=== PATIENT | male | born 1960 | race Caucasian/White ===

== ENCOUNTER → 2018-05-17 10:45 | Outpatient (CLI) | payer MEDICAID, SELFPAY ==
[2018-05-17 11:41] LABS: Basophils % 0.4 % (0.1-2.0); Eosinophils % 0.4 % (0.1-12.0); Hematocrit 42.6 % (42.0-52.0); Hemoglobin 14.3 g/dL (14.1-18.0); Lymphocytes # 1.6 K/mm3 (0.7-4.5); Lymphocytes % 14.9 K/mm3 (10-50); Mean Corpuscular HGB Conc 33.5 g/dL (31.8-35.4); Mean Corpuscular Hemoglobin 29.2 pg (27.0-31.2); Mean Corpuscular Volume 87.3 fl (80-94); Monocytes # 0.6 K/mm3 (0.1-1.0); Neutrophils # 8.7 K/mm3 (1.8-7.8); Neutrophils % 79.3 % (37.0-80.0); Platelet Count 343 K/mm3 (142-424); Red Blood Count 4.88 M/mm3 (4.60-6.20); Red Cell Distribution Width 12.3 % (11.5-17.5); White Blood Count 10.9 K/mm3 (4.8-10.8)
[2018-05-17 12:19] LABS: Hemoglobin A1C 10.7 % (0.0-7.0)
[2018-05-17 12:51] LABS: Alanine Aminotransferase 37 U/L (12-78); Albumin Level 4.2 gm/dL (3.4-5.0); Albumin/Globulin Ratio 1.3 (1.1-1.8); Alkaline Phosphatase 103 U/L (46-116); Anion Gap 13.5 mEq/L (5-15); Aspartate Amino Transferase 11 U/L (15-37); Bilirubin,Total 0.7 mg/dL (0.2-1.0); Blood Urea Nitrogen 30 mg/dL (7-18); Calcium 9.5 mg/dL (8.5-10.1); Carbon Dioxide 29 mmol/L (21.0-32.0); Chloride 95 mmol/L (98-107); Chol/HDL Ratio 8.5 (1-3.5); Cholesterol 305 mg/dL (140-200); Creatinine,Serum 1.55 mg/dL (0.70-1.30); Estimated Glomerular Filt Rate 46 ml/min (>60); GFR (African American) 56 ML/MIN (>60); Globulin 3.2 gm/dl (1.3-3.2); Glucose 391 mg/dL (74-106); HDL Cholesterol 36 mg/dL (27-67); Potassium 4.5 mmoL/L (3.5-5.1); Prostate Specific Ag Screen 1.6 ng/mL (0.0-4.0); Sodium 133 mmol/L (136-145); Thyroid Stimulating Hormone 0.83 uIU/ml (0.358-3.740); Total Protein,Serum 7.4 gm/dL (6.4-8.2)
[2018-05-17 13:10] LABS: Triglycerides 1031 mg/dL (30-200)
[2018-05-18 07:16] LABS: LH 9.3 mIU/mL (1.7-8.6)
[2018-05-18 08:38] LABS: Testosterone,Total 235 ng/dL (264-916); Vitamin D 25 Hydroxy 18.5 ng/mL (30.0-100.0)
[2018-05-18 08:39] LABS: Vitamin B12 437 pg/mL (232-1245)
== END ==
PROVIDERS: PCP Internal Medicine Adolescent Medicine; Visit Provider Nurse Practitioner Family
DX: Z00.00 Encounter for general adult medical examination without abnormal findings (principal); E78.2 Mixed hyperlipidemia; I10 Essential (primary) hypertension; N52.9 Male erectile dysfunction, unspecified; E11.9 Type 2 diabetes mellitus without complications; R53.83 Other fatigue
CPT/HCPCS: 36415; 80053; 80061; 82607; 82652; 83002; 83036; 84146; 84403; 84443; 85025; G0103

== ENCOUNTER → 2018-05-31 10:15 | Outpatient (CLI) | payer MEDICAID, SELFPAY ==
[2018-05-31 11:28] LABS: Alanine Aminotransferase 46 U/L (12-78); Albumin/Globulin Ratio 1.4 (1.1-1.8); Alkaline Phosphatase 87 U/L (46-116); Anion Gap 12.8 mEq/L (5-15); Aspartate Amino Transferase 23 U/L (15-37); Bilirubin,Total 0.7 mg/dL (0.2-1.0); Blood Urea Nitrogen 29 mg/dL (7-18); Calcium 9.1 mg/dL (8.5-10.1); Carbon Dioxide 28 mmol/L (21.0-32.0); Chloride 103 mmol/L (98-107); Creatinine,Serum 1.65 mg/dL (0.70-1.30); Estimated Glomerular Filt Rate 43 ml/min (>60); GFR (African American) 52 ML/MIN (>60); Globulin 2.8 gm/dl (1.3-3.2); Glucose 244 mg/dL (74-106); Potassium 4.8 mmoL/L (3.5-5.1); Sodium 139 mmol/L (136-145); Total Protein,Serum 6.8 gm/dL (6.4-8.2)
== END ==
PROVIDERS: PCP Nurse Practitioner Family; Visit Provider Nurse Practitioner Family
DX: R79.89 Other specified abnormal findings of blood chemistry (principal); E11.9 Type 2 diabetes mellitus without complications; I10 Essential (primary) hypertension
CPT/HCPCS: 36415; 80053

== ENCOUNTER → 2018-11-17 11:24 | Outpatient (CLI) | payer MEDICAID, SELFPAY ==
[2018-11-17 14:35] LABS: Alanine Aminotransferase 34 U/L (12-78); Albumin Level 4.3 gm/dL (3.4-5.0); Albumin/Globulin Ratio 1.5 (1.1-1.8); Alkaline Phosphatase 91 U/L (46-116); Anion Gap 12.7 mEq/L (5-15); Aspartate Amino Transferase 14 U/L (15-37); Bilirubin,Total 0.7 mg/dL (0.2-1.0); Blood Urea Nitrogen 21 mg/dL (7-18); Calcium 9.5 mg/dL (8.5-10.1); Carbon Dioxide 30 mmol/L (21.0-32.0); Chloride 105 mmol/L (98-107); Chol/HDL Ratio 5.9 (1-3.5); Cholesterol 178 mg/dL (140-200); Creatinine,Serum 1.54 mg/dL (0.70-1.30); Estimated Glomerular Filt Rate 46 ml/min (>60); GFR (African American) 56 ML/MIN (>60); Globulin 2.9 gm/dl (1.3-3.2); Glucose 131 mg/dL (74-106); HDL Cholesterol 30 mg/dL (27-67); LDL Cholesterol 77 mg/dL (0-130); Potassium 4.7 mmoL/L (3.5-5.1); Sodium 143 mmol/L (136-145); Total Protein,Serum 7.2 gm/dL (6.4-8.2); Triglycerides 354 mg/dL (30-200); VLDL Cholesterol 71 mg/dL (0-40)
== END ==
PROVIDERS: Visit Provider Internal Medicine Adolescent Medicine
DX: E78.2 Mixed hyperlipidemia (principal); E11.9 Type 2 diabetes mellitus without complications
CPT/HCPCS: 36415; 80053; 80061; 83036

== ENCOUNTER → 2018-12-15 08:19 | Outpatient (CLI) | payer MEDICAID, SELFPAY ==
[2018-12-15 10:49] LABS: Anion Gap 14.2 mEq/L (5-15); Blood Urea Nitrogen 34 mg/dL (7-18); Calcium 8.7 mg/dL (8.5-10.1); Carbon Dioxide 27 mmol/L (21.0-32.0); Chloride 104 mmol/L (98-107); Creatinine,Serum 1.69 mg/dL (0.70-1.30); Estimated Glomerular Filt Rate 42 ml/min (>60); GFR (African American) 51 ML/MIN (>60); Glucose 146 mg/dL (74-106); Potassium 4.2 mmoL/L (3.5-5.1); Sodium 141 mmol/L (136-145)
== END ==
PROVIDERS: Visit Provider Nurse Practitioner Family
DX: R79.89 Other specified abnormal findings of blood chemistry (principal)
CPT/HCPCS: 36415; 80048

== ENCOUNTER → 2018-12-21 14:41 | Outpatient (CLI) | payer MEDICAID, SELFPAY ==
--- NOTE | 2018-12-21 14:45 | US_ITS ---
US Kidney CLINICAL INDICATION: ITS.REASON: RENAL INSUFFICIENCY ORDERING PHYSICIAN: Manuel Lawler MD PATIENT AGE: 58 years Comparison: None FINDINGS: The right kidney is 12 x 6 x 6 cm. No hydronephrosis. No perinephric fluid collection. The left kidney is 13 x 6 x 7 cm. No hydronephrosis apparent. There is a 3 cm cyst along the lower pole of the left kidney. There is mild bilateral renal cortical thinning. IMPRESSION: 1. No hydronephrosis. 2. 3 cm cyst along the lower pole of the left kidney
== END ==
PROVIDERS: PCP Internal Medicine Adolescent Medicine; Visit Provider Internal Medicine Adolescent Medicine
DX: N28.9 Disorder of kidney and ureter, unspecified (principal)
CPT/HCPCS: 76770

== ENCOUNTER → 2018-12-24 08:35 | Outpatient (CLI) | payer MEDICAID, SELFPAY ==
[2018-12-24 09:58] LABS: Creatinine,Urine Random 123 mg/dL (20-320); Patient Height,Urine 72 inches; Patient Weight,Urine 235 lbs
[2018-12-24 10:01] LABS: Collection Time,Urine 19 hours; Creatinine 24 Hour,Urine 2276 mg/24hr (630-2500); Creatinine Clearance Urine 101.2 mL/min (85-125); Total Volume,Urine 1850 mL (800-1800)
== END ==
PROVIDERS: Visit Provider Internal Medicine Adolescent Medicine
DX: N28.9 Disorder of kidney and ureter, unspecified (principal)
CPT/HCPCS: 82570; 82575

== ENCOUNTER → 2019-01-26 09:35 | Outpatient (CLI) | payer MEDICAID, SELFPAY ==
[2019-01-26 09:53] LABS: Basophils # 0.1 K/mm3 (0-0.2); Basophils % 0.7 % (0.1-2.0); Eosinophils # 0.4 K/mm3 (0.0-0.4); Eosinophils % 5.3 % (0.1-12.0); Hematocrit 39.7 % (42.0-52.0); Lymphocytes # 1.2 K/mm3 (0.7-4.5); Lymphocytes % 15.6 % (10-50); Mean Corpuscular HGB Conc 32.9 g/dL (31.8-35.4); Mean Corpuscular Volume 82.3 fl (80-94); Mean Platelet Volume 7.5 fl (7.4-10.4); Monocytes # 0.5 K/mm3 (0.1-1.0); Neutrophils # 5.5 K/mm3 (1.8-7.8); Neutrophils % 71.2 % (37.0-80.0); Platelet Count 283 K/mm3 (142-424); Red Blood Count 4.82 M/mm3 (4.60-6.20); Red Cell Distribution Width 11.8 % (11.5-17.5); White Blood Count 7.7 K/mm3 (4.8-10.8)
[2019-01-26 10:24] LABS: Alanine Aminotransferase 37 U/L (12-78); Albumin Level 3.8 gm/dL (3.4-5.0); Albumin/Globulin Ratio 1.2 (1.1-1.8); Alkaline Phosphatase 91 U/L (46-116); Anion Gap 14.3 mEq/L (5-15); Aspartate Amino Transferase 16 U/L (15-37); Bilirubin,Total 0.5 mg/dL (0.2-1.0); Blood Urea Nitrogen 24 mg/dL (7-18); Calcium 9.4 mg/dL (8.5-10.1); Carbon Dioxide 27 mmol/L (21.0-32.0); Chloride 104 mmol/L (98-107); Cholesterol 149 mg/dL (140-200); Creatinine,Serum 1.56 mg/dL (0.70-1.30); Estimated Glomerular Filt Rate 46 ml/min (>60); GFR (African American) 55 ML/MIN (>60); Globulin 3.2 gm/dl (1.3-3.2); Glucose 149 mg/dL (74-106); HDL Cholesterol 30 mg/dL (27-67); LDL Cholesterol 70 mg/dL (0-130); Potassium 4.3 mmoL/L (3.5-5.1); Sodium 141 mmol/L (136-145); Triglycerides 244 mg/dL (30-200); VLDL Cholesterol 49 mg/dL (0-40)
[2019-01-26 14:55] LABS: Hemoglobin A1C 6.3 % (0.0-7.0)
== END ==
PROVIDERS: Visit Provider Nurse Practitioner Family
DX: E78.2 Mixed hyperlipidemia (principal); E11.9 Type 2 diabetes mellitus without complications; D86.9 Sarcoidosis, unspecified
CPT/HCPCS: 36415; 80053; 80061; 83036; 85025

== ENCOUNTER → 2019-02-08 12:06 | Outpatient (CLI) | payer MEDICAID, SELFPAY ==
[2019-02-08 13:24] LABS: Anion Gap 15.7 mEq/L (5-15); Blood Urea Nitrogen 20 mg/dL (7-18); Calcium 9.2 mg/dL (8.5-10.1); Carbon Dioxide 27 mmol/L (21.0-32.0); Chloride 102 mmol/L (98-107); Creatinine,Serum 1.66 mg/dL (0.70-1.30); Estimated Glomerular Filt Rate 43 ml/min (>60); GFR (African American) 52 ML/MIN (>60); Glucose 237 mg/dL (74-106); Potassium 4.7 mmoL/L (3.5-5.1); Sodium 140 mmol/L (136-145)
== END ==
PROVIDERS: Visit Provider Internal Medicine Adolescent Medicine
DX: R79.89 Other specified abnormal findings of blood chemistry (principal)
CPT/HCPCS: 36415; 80048

== ENCOUNTER → 2019-08-24 13:05 | Outpatient (CLI) | payer OTHER, SELFPAY ==
--- NOTE | 2019-08-24 13:09 | XR_ITS ---
PROCEDURE: XR CHEST 2V CLINICAL HISTORY: SARCOIDOSIS COMPARISON: No exams were available for comparison FINDINGS: The cardiomediastinal silhouette and pulmonary vascularity are within normal limits. The lungs are clear without infiltrates, suspicious nodules, or pleural effusions. Minimal midthoracic curvature convex left IMPRESSION: No acute finding Dictated by: Javier Pascual MD 08/24/2019 13:31 Electronically signed by Javier Pascual MD in [place] 08/24/2019 13:31
== END ==
PROVIDERS: PCP Internal Medicine Adolescent Medicine; Visit Provider Internal Medicine Adolescent Medicine
DX: D86.9 Sarcoidosis, unspecified (principal); R06.09 Other forms of dyspnea
CPT/HCPCS: 71046; 94060; 94640; 94726; 94729

== ENCOUNTER → 2020-09-16 09:36 | Outpatient (CLI) | payer OTHER, SELFPAY ==
--- NOTE | 2020-09-16 09:55 | XR_ITS ---
PROCEDURE: XR CHEST 2V CLINICAL HISTORY: COUGH Sarcoidosis COMPARISON: CR XR CHEST 2V from 08/24/2019 FINDINGS: The cardiomediastinal silhouette and pulmonary vascularity are within normal limits. The lungs are clear without infiltrates, suspicious nodules, or pleural effusions. Mild mid upper thoracic curvature convex left IMPRESSION: No acute findings. Dictated by: Javier Pascual MD 09/16/2020 16:04 Javier Pascual MD in [place] 09/16/2020 16:04
[2020-09-16 10:32] LABS: Basophils # 0.1 K/mm3 (0-0.2); Basophils % 0.7 % (0.1-2.0); Eosinophils # 0.3 K/mm3 (0.0-0.4); Eosinophils % 3.9 % (0.1-12.0); Hematocrit 43.7 % (42.0-52.0); Lymphocytes # 1.2 K/mm3 (0.7-4.5); Lymphocytes % 15.1 % (10-50); Mean Corpuscular HGB Conc 34.4 g/dL (31.8-35.4); Mean Corpuscular Hemoglobin 29.5 pg (27.0-31.2); Mean Corpuscular Volume 85.9 fl (80-94); Mean Platelet Volume 7.4 fl (7.4-10.4); Monocytes # 0.4 K/mm3 (0.1-1.0); Neutrophils # 6.1 K/mm3 (1.8-7.8); Neutrophils % 75.2 % (37.0-80.0); Platelet Count 374 K/mm3 (142-424); Red Blood Count 5.09 M/mm3 (4.60-6.20); Red Cell Distribution Width 12.9 % (11.5-17.5); White Blood Count 8.2 K/mm3 (4.8-10.8)
[2020-09-16 11:24] LABS: Hemoglobin A1C 10.7 % (4.0-6.0)
[2020-09-16 12:39] LABS: Alanine Aminotransferase 40 U/L (12-78); Albumin Level 4.2 g/dl (3.5-5.0); Albumin/Globulin Ratio 1.4 (1.1-1.8); Alkaline Phosphatase 125 U/L (38-126); Anion Gap 14.2 mEq/L (5-15); Aspartate Amino Transferase 28 U/L (17-59); Bilirubin,Total 0.7 mg/dl (0.2-1.3); Blood Urea Nitrogen 20 mg/dl (9-20); Calcium 9.7 mg/dl (8.4-10.2); Carbon Dioxide 31 mmol/L (22.0-30.0); Chloride 97 mmol/L (98-107); Chol/HDL Ratio 9.7 (1-3.5); Cholesterol 243 mg/dl (140-200); Estimated Glomerular Filt Rate 52 ml/min (>60); GFR (African American) 62 ML/MIN (>60); Globulin 2.9 g/dL (1.3-3.2); Glucose 252 mg/dl (74-100); HDL Cholesterol 25 mg/dl (40-60); Potassium 5.2 mmoL/L (3.5-5.1); Sodium 137 mmol/L (136-145); Total Protein,Serum 7.1 g/dl (6.3-8.2)
[2020-09-16 12:48] LABS: Triglycerides 1171 mg/dl (30-150)
[2020-09-16 12:59] LABS: Direct LDL Cholesterol < 30.00 mg/dL (100-129)
[2020-09-16 13:09] LABS: Thyroid Stimulating Hormone 0.73 uIU/mL (0.465-4.68)
[2020-09-16 13:27] LABS: Vitamin B12 345 pg/mL (239-931)
[2020-09-16 14:00] LABS: 25-OH Vitamin D, Total 18.5 ng/mL (30-100)
== END ==
PROVIDERS: Visit Provider Nurse Practitioner Family
DX: E11.9 Type 2 diabetes mellitus without complications (principal); E78.2 Mixed hyperlipidemia; I10 Essential (primary) hypertension; R63.4 Abnormal weight loss; D86.9 Sarcoidosis, unspecified; E53.8 Deficiency of other specified B group vitamins; E55.9 Vitamin D deficiency, unspecified; R05 Cough; Z79.84 Long term (current) use of oral hypoglycemic drugs
CPT/HCPCS: 36415; 71046; 80053; 80061; 82306; 82607; 83036; 84443; 85025

== ENCOUNTER 2020-11-11 19:12 | Observation (INO) | payer OTHER, SELFPAY ==
[2020-11-11] VITALS (9 sets, daily range): BP systolic 124–156; BP diastolic 71–92; PULSE 55–80; RESP 16–18; TEMP 36.5–36.9; O2SAT 94–99; BMI 31.1
--- NOTE | 2020-11-11 19:20 | ECG_ITS ---
APPROVED REPORT Exam: Resting ECG HR:83 bpm ECG Measurements Heart Rate 83 AXES ID 240 P 48 QRSd 86 QRS 44 QT 366 T 17 QTc 430 Conclusion Sinus rhythm with 1st degree AV block with premature atrial complexes Otherwise normal ECG Electronically signed by : Manuel Lawler, 11/12/2020 17:46:41
--- NOTE | 2020-11-11 19:38 | XR_ITS ---
PROCEDURE: XR CHEST 2V CLINICAL HISTORY: arryhtmias Chest pressure COMPARISON: CR XR CHEST 2V from 08/24/2019 CR XR CHEST 2V from 09/16/2020 FINDINGS: The cardiomediastinal silhouette and pulmonary vascularity are within normal limits. The lungs are clear without infiltrates, suspicious nodules, or pleural effusions. No acute bony abnormalities. IMPRESSION: No acute findings. Dictated by: Javier Pascual MD 11/12/2020 05:29 Javier Pascual MD in [place] 11/12/2020 05:29
[2020-11-11 19:45] LABS: Basophils # 0.1 K/mm3 (0-0.2); Basophils % 0.7 % (0.1-2.0); Eosinophils # 0.3 K/mm3 (0.0-0.4); Eosinophils % 2.3 % (0.1-12.0); Hematocrit 39.8 % (42.0-52.0); Lymphocytes % 18.1 % (10-50); Mean Corpuscular HGB Conc 35.1 g/dL (31.8-35.4); Mean Corpuscular Hemoglobin 29.6 pg (27.0-31.2); Mean Corpuscular Volume 84.2 fl (80-94); Mean Platelet Volume 7.2 fl (7.4-10.4); Monocytes # 0.6 K/mm3 (0.1-1.0); Monocytes % 5.3 % (1.7-9.3); Neutrophils # 8.2 K/mm3 (1.8-7.8); Neutrophils % 73.6 % (37.0-80.0); Platelet Count 340 K/mm3 (142-424); Red Blood Count 4.73 M/mm3 (4.60-6.20); Red Cell Distribution Width 12.6 % (11.5-17.5); White Blood Count 11.2 K/mm3 (4.8-10.8)
[2020-11-11 19:47] LABS: Sodium 139 mmol/L (136-145)
[2020-11-11 19:49] LABS: Blood Urea Nitrogen 26 mg/dl (9-20); Creatinine Clearance Estimated 72 mL/min (50-200); Estimated Glomerular Filt Rate 44 ml/min (>60); GFR (African American) 53 ML/MIN (>60)
[2020-11-11 19:50] LABS: Alanine Aminotransferase 29 U/L (12-78); Albumin Level 4.9 g/dl (3.5-5.0); Alkaline Phosphatase 106 U/L (38-126); Aspartate Amino Transferase 35 U/L (17-59); Bilirubin,Direct 0.1 mg/dl (0.0-0.4); Bilirubin,Indirect 0.4 mg/dL (0.0-0.9); Bilirubin,Total 0.5 mg/dl (0.2-1.3); Bilirubin,Unconjugated 0.4 mg/dL (0.0-1.1); Calcium 10.1 mg/dl (8.4-10.2); Carbon Dioxide 24 mmol/L (22.0-30.0); Glucose 114 mg/dl (74-100); Total Protein,Serum 7.5 g/dl (6.3-8.2)
[2020-11-11 19:56] LABS: C-Reactive Protein 8.1 mg/L (0-4)
[2020-11-11 20:05] LABS: Troponin I < 0.01 ng/ml (0.00-0.034)
[2020-11-11 20:13] LABS: Chloride 102 mmol/L (98-107)
[2020-11-11 20:19] LABS: Erythrocyte Sedimentation Rate 21 mm/hr (0-20)
[2020-11-11 20:34] LABS: Procalcitonin 0.079 ng/mL (0.0-2.0)
--- NOTE | 2020-11-11 21:06 | HMH.EDARPALP ---
ED Disposition Clinical Impression: Chest pain at rest, Obesity (BMI 30.0-34.9), Renal insufficiency Diabetes mellitus Qualifiers: Diabetes mellitus type: type 2 Diabetes mellitus penitentiary insulin use: unspecified buttermaker insulin use status Diabetes mellitus complication status: with other specified complication Qualified Code(s): E11.69 - Type 2 diabetes mellitus with other specified complication Disposition: Admitted as Observation Condition on Discharge: Good - Critical Care Critical Care Time: No Attestation: On 11/11/20, the high probability of a clinically significant, sudden or life threatening deterioration of the following system(s) required my full and direct attention, intervention and personal management. The time I documented below is in addition to time spent performing reported procedures but includes the following listed in this critical care notation. Medical Decision Making - Medical Records Medical records reviewed: Yes: I reviewed the patient's medical records. - Colt Inquiry Pt receiving controlled substance: No Vital Signs: 11/11/20 19:28 11/11/20 19:30 11/11/20 20:15 Temperature 98.4 F Temperature Source Oral Pulse Rate 69 55 L Pulse Rate [Right] 80 Respiratory Rate 16 Blood Pressure 126/85 130/71 Blood Pressure [Right Arm] 153/86 H Blood Pressure Mean [Right Arm] 108 Blood Pressure Source [Right Arm] Automatic Cuff Blood Pressure Position [Right Arm] Supine 02 Sat by Pulse Oximetry 97 98 97 Oxygen Delivery Method Room Air - Lab Data Lab results reviewed: Yes: I reviewed the patient's lab results. Lab Results 11/11/20 19:28: WBC 11.2 H, RBC 4.73, Hgb 14.0 L, Hct 39.8 L, MCV 84.2, MCH 29.6, MCHC 35.1, RDW 12.6, Plt Count 340, MPV 7.2 L, Neut % (Auto) 73.6, Lymph % (Auto) 18.1, [place] % (Auto) 5.3, Eos % (Auto) 2.3, Baso % (Auto) 0.7, Neut # (Auto) 8.2 H, Lymph # (Auto) 2.0, [place] # (Auto) 0.6, Eos # (Auto) 0.3, Baso # (Auto) 0.1, ESR 21 H 11/11/20 19:28: Sodium 139, Potassium 4.0, Chloride 102, Carbon Dioxide 24, Anion Gap 17.0 H, BUN 26 H, Creatinine 1.60 H, Estimated Creat Clear 72, Estimated GFR 44 L, Est GFR ( Amer) 53 L, Glucose 114 H, Calcium 10.1, Total Bilirubin 0.5, Direct Bilirubin 0.1, Conjugated Bilirubin 0.0, Indirect Bilirubin 0.4, Unconjugated Bilirubin 0.4, AST 35, ALT 29, Alkaline Phosphatase 106, Troponin I < 0.01, C-Reactive Protein 8.1 H, Total Protein 7.5, Albumin 4.9, Procalcitonin 0.079 11/11/20 19:59: Magnesium 1.7 Result diagrams: 11/11/20 19:28 11/11/20 19:28 Orders (Tests/Meds): ED MEDICATIONS Discontinued Medications Generic Name Dose Route Start Last Admin Trade Name Freq PRN Reason Stop Dose Admin Nitroglycerin 1 gm 11/11/20 21:24 11/11/20 21:40 Nitroglycerin 1 Gm Ointment TD 11/11/20 21:25 1 gm ONCE ONE Administration ORDERS Category Date Time Status Chest XR 2 view (NOT portable) [XR chest 2V] Stat Exams 11/11/20 19:38 Taken T4 (Thyroxine) Routine Lab 11/11/20 21:14 Received Thyroid Stimulating Hormone Routine Lab 11/11/20 21:14 Received Troponin I Q3H Lab 11/11/20 22:45 Ordered Troponin I Q3H Lab 11/12/20 01:45 Ordered - Radiology Data #1 Image(s): Chest Image Reviewed: Yes I reviewed the patient's radiology image Preliminary Findings: Normal/NAD - ECG Data Tracing #1 Normal Sinus Rhythm: Yes Ischemic changes: non-specific ST-T wave changes - Physician Consults Physician Consulted: edgar Reason -: Admission - DALILA Score for Non-Stemi Age of Patient: 60-69 years old Heart Rate: 70-89 bpm Systolic Blood Pressure: 140-159 mmHg Serum Creatinine: 1.60-1.99 mg/dl CHF Killip Class: I-No CHF Other Risk Factors: None Non-Stemi Risk Score: 104 Medical Decision Narrative: hx consistent with angina with sig risk factors and will require admit and card eval Arrhythmia/Palpitations HPI - General Chief Complaint: Arrhythmia/Palpitations Stated Complaint:
[2020-11-11 21:33] LABS: Magnesium 1.7 mg/dl (1.6-2.3)
[2020-11-11 21:37] LABS: Adenovirus,PCR Not Detected (NotDetected); Bordetella Pertussis Not Detected (NotDetected); Chlamydophila Pneumoniae, PCR Not Detected (NotDetected); Coronavirus 19, PCR Not Detected (NotDetected); Coronavirus 229E Not Detected (NotDetected); Coronavirus NL63 Not Detected (NotDetected); Coronavirus OC43 Not Detected (NotDetected); Coronovirus HKU1,PCR Not Detected (NotDetected); Human Metapneumovirus Not Detected (NotDetected); Influenza A, PCR Not Detected (NotDetected); Influenza AH1, 2009 Not Detected (NotDetected); Influenza AH1, PCR Not Detected (NotDetected); Influenza AH3,PCR Not Detected (NotDetected); Influenza B, PCR Not Detected (NotDetected); Mycoplasma Pneumoniae, PCR Not Detected (NotDetected); Parainfluenza 1, PCR Not Detected (NotDetected); Parainfluenza 2, PCR Not Detected (NotDetected); Parainfluenza 3, PCR Not Detected (NotDetected); Parainfluenza 4, PCR Not Detected (NotDetected); Respiratory Syncytial Virus Not Detected (NotDetected); Rhinovirus/Enterovirus Not Detected (NotDetected)
[2020-11-11 22:05] LABS: Thyroid Stimulating Hormone 0.52 uIU/mL (0.465-4.68)
[2020-11-11 23:05] LABS: Troponin I < 0.01 ng/ml (0.00-0.034)
--- NOTE | 2020-11-11 23:49 | PC.NURSE ---
pt arrived to floor via w/c from ed w/staff at [id number]
[2020-11-12] VITALS: BP 138/77; PULSE 77; RESP 17; TEMP 36.4; O2SAT 95; BMI 30.9
--- NOTE | 2020-11-12 | CA_ITS ---
APPROVED REPORT Exam: Exercise Treadmill Technologist: Candelaria Andrew Ht: 6 ft 0 in Wt: 227 lbs BSA: 2.25 m2 HR: 68 bpm BP: 147/83 mmHg Indications: Chest pain Medical History Medications: Amlodipine,,,,, Aspirin,,,,, Losartan,,,,, Atorvastatin,,,,, Trazodone,,,,, Stress Test Details Test: Logan HR Resting HR: 70 bpm Max Heart Rate (APMHR): 159.305797 bpm Max HR Achieved: 142 bpm Target HR (85% APMHR): 135.503187 bpm % of APMHR: 89.31 Recovery HR: 81 bpm BP Resting BP: 147.0/83.0 mmHg Max BP: 198.0/78.0 mmHg Recovery BP: 146.0/81.0 mmHg ECG Resting ECG: Normal sinus rhythm, first degree AV block Clinical Exercise duration: 07:00 min Highest Stage Achieved: Exercise capacity: 10.1 METs Stress ECG Conclusion Patient exercised 7:00 on Logan Protocol. Test stopped due to shortness of air, fatigue. Symptoms: No chest pain. Arrhythmias/Ectopy: Rare narrous complex ectopic beat. ST-T Changes: Within normal GXT. Myoview images reported separately. Test Summary REST . . . . . . . Sitting REST . . . . . . . Standing REST 05:08 0.0 0.0 70 . 147/ 83 . . Stage 1 01:00 10.0 1.7 86 . . . . Stage 1 02:00 10.0 1.7 101 . . . . Stage 1 03:00 10.0 1.7 106 . 182/ 80 . . Stage 2 01:00 12.0 2.5 114 . . . . Stage 2 02:00 12.0 2.5 116 . . . . Stage 2 . . . . . . . Myoview Injected Stage 2 03:00 12.0 2.5 123 . 195/ 84 . . Stage 3 01:00 14.0 3.4 140 . . . Stop exercise at 07:00 RECOVERY 01:00 0.0 0.0 119 . 198/ 78 . . RECOVERY 02:00 0.0 0.0 95 . 198/ 78 . . RECOVERY 03:00 0.0 0.0 88 . 167/ 79 . . RECOVERY 04:00 0.0 0.0 85 . 167/ 79 . . RECOVERY 05:00 0.0 0.0 81 . 146/ 81 . . RECOVERY 05:40 0.0 0.0 79 . 146/ 81 . . Electronically signed by : Bimal Valdez, 11/13/2020 09:27:24
[2020-11-12 00:12] VITALS: PULSE 80
[2020-11-12 01:48] LABS: Troponin I < 0.01 ng/ml (0.00-0.034)
[2020-11-12 04:00] VITALS: BP 133/66; PULSE 60; RESP 17; TEMP 36.4; O2SAT 97
--- NOTE | 2020-11-12 04:51 | PC.NURSE ---
Patient admitted to the floor at 2345 for CP. No c/o of CP upon arrival to floor. Patient VSS and A O X4. Patient NPO as Cards Consult. Will continue to monitor for any acute changes.
[2020-11-12 06:15] LABS: POC Glucose,Bedside 178 (70-110)
[2020-11-12 06:52] LABS: Basophils # 0.1 K/mm3 (0-0.2); Basophils % 0.8 % (0.1-2.0); Eosinophils # 0.4 K/mm3 (0.0-0.4); Eosinophils % 5.2 % (0.1-12.0); Hematocrit 36.5 % (42.0-52.0); Hemoglobin 12.7 g/dL (14.1-18.0); Lymphocytes # 1.9 K/mm3 (0.7-4.5); Lymphocytes % 24.4 % (10-50); Mean Corpuscular HGB Conc 34.8 g/dL (31.8-35.4); Mean Corpuscular Hemoglobin 29.5 pg (27.0-31.2); Mean Corpuscular Volume 84.8 fl (80-94); Mean Platelet Volume 7.2 fl (7.4-10.4); Monocytes # 0.5 K/mm3 (0.1-1.0); Monocytes % 6.4 % (1.7-9.3); Neutrophils # 4.9 K/mm3 (1.8-7.8); Neutrophils % 63.1 % (37.0-80.0); Platelet Count 281 K/mm3 (142-424); Red Cell Distribution Width 12.8 % (11.5-17.5); White Blood Count 7.8 K/mm3 (4.8-10.8)
[2020-11-12 07:00] LABS: Anion Gap 9.9 mEq/L (5-15); Blood Urea Nitrogen 28 mg/dl (9-20); Calcium 9.2 mg/dl (8.4-10.2); Carbon Dioxide 26 mmol/L (22.0-30.0); Chloride 104 mmol/L (98-107); Chol/HDL Ratio 7.1 (1-3.5); Cholesterol 164 mg/dl (140-200); Creatinine Clearance Estimated 81 mL/min (50-200); Estimated Glomerular Filt Rate 52 ml/min (>60); GFR (African American) 62 ML/MIN (>60); Glucose 161 mg/dl (74-100); HDL Cholesterol 23 mg/dl (40-60); Potassium 3.9 mmoL/L (3.5-5.1); Sodium 136 mmol/L (136-145)
[2020-11-12 07:11] LABS: Direct LDL Cholesterol 30.53 mg/dL (100-129)
[2020-11-12 07:20] LABS: Triglycerides 722 mg/dl (30-150)
--- NOTE | 2020-11-12 07:54 | HMH.PHAINT ---
home medication list verified using list from [facility] and [facility]DIE
--- NOTE | 2020-11-12 07:55 | P.CONPHA_ITS ---
[facility] Pharm[facility] VTE Monitoring - Patient Demographics Admission date: 11/12/20 Report Date: 11/12/20 Time: 07:55 Allergies/Adverse Reactions: Patient Allergies No Known Allergies Allergy (Verified 08/27/19 09:32) Height: 1.83 m Weight: 103.419 kg Patient Problems: Current Active Problems Chest pain at rest (Acute) Obesity (BMI 30.0-34.9) (Acute) Diabetes mellitus (Acute) Renal insufficiency (Acute) - VTE Risk Labs: VTE Related Lab Results Hgb 12.7 g/dL (14.1-18.0) L 11/12/20 06:19 Hct 36.5 % (42.0-52.0) L 11/12/20 06:19 Plt Count 281 K/mm3 (142-424) 11/12/20 06:19 BUN 28 mg/dl (9-20) H 11/12/20 06:19 Creatinine 1.40 mg/dl (0.66-1.25) H 11/12/20 06:19 Estimated Creat Clear 81 mL/min (50-200) 11/12/20 06:19 Was VTE Risk Assessment Performed: Yes VTE Score: 1 VTE Risk Level: Very Low Risk Clinical Trial Participant: No - Prophylaxis VTE Prophylaxis Ordered?: Yes Types of VTE Prophylaxis: TEDS Knee High
[2020-11-12 08:00] VITALS: BP 148/89; PULSE 55; PULSE 60; RESP 18; TEMP 36.7; O2SAT 98
--- NOTE | 2020-11-12 08:00 | CA_ITS ---
APPROVED REPORT EXAM: Comprehensive 2D, Doppler, and color-flow Echocardiogram Oil Fire Specialist: Kimberli Winslow RVT Ht: 6 ft 0 in Wt: 230lbs BSA: 2.26 BP: 130/71 mmHg Indications: CP,EX SMOKER,PRIOR ABLATION 2D Dimensions LVOT 2.00 cm (M/F) 1.5-2.5 LA Volume 25.40 mL LA Volume Index 11.23 mL/m2 (M/F) 16-34 M-Mode Dimensions RVDd 3.02 cm (0.9-2.6) LA Diam 4.46 cm (1.9-4.0) LVDd 4.35 cm (3.5-5.7) Ao Diam 3.53 cm (2.0-3.7) LVDs 2.41 cm (3.5-5.7) IVSd 1.49 cm (0.6-1.1) PWd 1.09 cm (0.6-1.1) EF (Teich) 76.10% FS 44.60% EDV (Teich) 85.40 mL ESV (Teich) 20.40 mL LV Diastology E Decel Time 257.00 (160-240 msec) E/A Ratio 1.1 MED E' 4.90 (< 7 cm/sec) E'/MED E' Ratio 22.90 (>14) LAT E' 10.50 (<10 cm/sec) E/LAT E' Ratio 10.69 (>14) Aortic Valve AI PHT 933.00 ms Mitral Valve MV E Max Fili. 112.00 (40-130 cm/s) MV A Velocity 103.00 (40-130 cm/s) E/A Ratio 1.09 MV Decel. Time 257.00 (160-240 ms) MV PHT 75.00 ms Pulmonary Valve PV Peak Velocity 75.00 (50-150 cm/s) Left Ventricle Left atrium is mildly enlarged, left ventricle is normal size, mild qualitative concentric left ventricular hypertrophy, visually estimated ejection fraction 55% with no regional wall motion abnormality. Diastolic parameters are inconclusive. Right Ventricle Right atrium and right ventricle are mildly enlarged with normal contractility. Aortic Valve Aortic valve is minimally thickened and fibrosed, there is no aortic stenosis, there is mild aortic insufficiency. Mitral Valve Mitral valve grossly normal, there is trace mitral regurgitation. Tricuspid Valve Tricuspid grossly normal, there is trace tricuspid regurgitation, tricuspid regurgitation jet velocity is inadequate for calculation of the right ventricular systolic pressure. Pulmonic Valve Pulmonic valve is poorly visualized. Great Vessels Aortic root is normal size. Pericardium No significant pericardial effusion noted. Conclusion 1. Mild biatrial alignment, normal left ventricular size, mild concentric left ventricular hypertrophy, visually estimated ejection fraction 55% with no regional wall motion abnormality, diastolic parameters are inconclusive. 2. Mildly enlarged right ventricle with normal contractility. 3. Mild aortic, trace mitral and tricuspid regurgitation. 4. No significant pericardial effusion noted, inferior vena cava is normal size with normal inspiratory collapse. Electronically signed by : Bimal Valdez, 11/13/2020 14:57:48
--- NOTE | 2020-11-12 08:26 | HMH.HP ---
*Admission Date: 11/12/20 *Chief complaint: Accelerating angina *History of present illness: 3 episodes of chest pain over the past 48 hours, anginal in nature, pressure, diaphoresis and sweating. [facility] History I have reviewed the patient's past medical history: Yes Medical History: Reports:: Arrhythmia, Diabetes Mellitus Type 2, Hypertension Denies:: Diabetes Mellitus Type 1 *Have you ever received a pneumonia vaccine?: No *Have you received a flu vaccine this season?: No Other Medical History: Reports: Arthritis Other Surgeries: Yes: Other (heart ablasion x 2, lung biopsy, heart cath) Amputation: No Fractures: No - *Social History Smoking Status: Never smoker Tobacco Type: cigars Alcohol Intake: current Alcohol Intake Frequency:: holidays/special occasions only Substance Use Type: denies use *Occupational Status:: employed Housing: house Household Members: spouse *Travel in the last 8 weeks: None Family Hx:: Cancer, Coronary Artery Disease, Heart Attack Review of Systems - Review of Systems Review of systems:: pertinent systems reviewed and negative unless documented below - *Neurologic Denies headache(s), Denies seizure-like activity Meds Home Medications Medication Instructions Recorded Confirmed Type amlodipine 10 mg tablet 10 mg PO DAILY 08/27/19 11/12/20 History aspirin 81 mg tablet,delayed 81 mg PO DAILY 08/27/19 11/12/20 History release atorvastatin 40 mg tablet 40 mg PO DAILY 08/27/19 11/12/20 History glimepiride 2 mg tablet 2 mg PO DAILY 08/27/19 11/12/20 History Losartan Potassium 100 mg PO DAILY 11/12/20 11/12/20 History Trazodone HCl 150 mg PO HS 11/12/20 11/12/20 History Allergies Allergy/AdvReac Type Severity Reaction Status Date / Time No Known Allergies Allergy Verified 08/27/19 09:32 Exam Vital signs and Labs for Last 24 Hours: Temp Pulse Resp BP Pulse Ox 98.2 F 63 18 135/80 94 L 11/12/20 08:00 11/12/20 08:00 11/12/20 08:00 11/12/20 08:00 11/12/20 08:00 Laboratory Results - last 24 hr 11/11/20 19:28: WBC 11.2 H, RBC 4.73, Hgb 14.0 L, Hct 39.8 L, MCV 84.2, MCH 29.6, MCHC 35.1, RDW 12.6, Plt Count 340, MPV 7.2 L, Neut % (Auto) 73.6, Lymph % (Auto) 18.1, Lane % (Auto) 5.3, Eos % (Auto) 2.3, Baso % (Auto) 0.7, Neut # (Auto) 8.2 H, Lymph # (Auto) 2.0, Lane # (Auto) 0.6, Eos # (Auto) 0.3, Baso # (Auto) 0.1, ESR 21 H 11/11/20 19:28: Sodium 139, Potassium 4.0, Chloride 102, Carbon Dioxide 24, Anion Gap 17.0 H, BUN 26 H, Creatinine 1.60 H, Estimated Creat Clear 72, Estimated GFR 44 L, Est GFR ( Amer) 53 L, Glucose 114 H, Calcium 10.1, Total Bilirubin 0.5, Direct Bilirubin 0.1, Conjugated Bilirubin 0.0, Indirect Bilirubin 0.4, Unconjugated Bilirubin 0.4, AST 35, ALT 29, Alkaline Phosphatase 106, Troponin I < 0.01, C-Reactive Protein 8.1 H, Total Protein 7.5, Albumin 4.9, Procalcitonin 0.079 11/11/20 19:59: Magnesium 1.7 11/11/20 21:14: TSH 0.52, Thyroxine (T4) 6.0 11/11/20 21:25: Chlamy pneumoniae PCR Not detected, Adenovirus (PCR) Not detected, B. pertussis DNA (PCR) Not detected, Coronavirus OC43 (PCR) Not detected, Coronavirus HKU1 (PCR) Not detected, Coronavirus 229E (PCR) Not detected, SARS-CoV-2 (PCR) Not detected, Coronavirus NL63 (PCR) Not detected, Human Metapneumovir PCR Not detected, Influenza A (H1) PCR Not detected, Influ A (H1N1/09) PCR Not detected, Influenza A (H3) PCR Not detected, Influenza Type A (PCR) Not detected, Influenza Type B (PCR) Not detected, M. pneumoniae (PCR) Not detected, Parainfluenza 1 (PCR) Not detected, Parainfluenza 2 (PCR) Not detected, Parainfluenza 3 (PCR) Not detected, Parainfluenza 4 (PCR) Not detected, RSV (PCR) Not detected, Entero/Rhino (PCR) Not detected 11/11/20 22:28: Troponin I < 0.01 11/12/20 01:18: Troponin I < 0.01 11/12/20 06:07: POC Glucose 178 H 11/12/20 06:19: WBC 7.8 D, RBC 4.30 L, Hgb 12.7 L, Hct 36.5 L, MCV 84.8, MCH 29.5, MCHC 34.8, RDW 12.8, Plt Count 281, MPV 7.2 L, Neut % (Auto) 63.1, Lymph % (Auto) 24.4, Lane % (Auto
--- NOTE | 2020-11-12 08:33 | HMH.CNCARD ---
History of Present Illness Consult date: 11/12/20 Requesting physician: Manuel Lawler Consult reason: chest pain Chief complaint: Chest pain and palpitations History of present illness: 60-year-old male presented to [facility] ED with persistent chest heaviness throughout the night. Patient stated the chest heaviness had started a few days prior while he was watching TV. States the chest heaviness had become worse last evening, lasted for 3 to 4 hours. Patient complains of dull chest discomfort this a.m. Nonradiating. Patient states with chest heaviness he does have shortness of breath. Denies shortness of breath otherwise. Patient does complain of palpitations with exertion. Patient does have a history of 2 heart ablations the last 1 being 10 years ago for palpitations. This was performed at [facility]. Patient denies dizziness. No swelling noted over the lower extremities. Patient does have history of sarcoidosis, which she was diagnosed 10 to 12 years ago. Last heart catheterization was 10 years ago at [facility]. Patient states he was told his heart looked fine. Significant family history of father with multiple MIs. Patient is a non-smoker. Patient does consume occasional beer. Patient is a known diabetic, which is controlled. History of hypertension and hyperlipidemia. These are managed by PCP. This x-ray revealed no acute finding. Serial troponins were noted as negative. Initial EKG noted as sinus bradycardia with no ST abnormalities. Vital signs are stable. Discussed plan of care with Dr. Partida and PCP. Recommended left heart catheterization due to angina to patient. Patient declined and requested a stress test. Patient stated if he is to have a left heart catheterization he would like to have it at [facility]. Obtain echocardiogram to assess for LV function and valve status. Patient is scheduled for Lexiscan Myoview today due to angina. Pending on the results of the echocardiogram and Myoview stress test, medication and therapy changes may be recommended. Please continue to monitor patient in the status. Thank you for allowing cardiology to participate in the care of this patient. [facility] History I have reviewed the patient's past medical history: Yes Medical History: Reports:: Arrhythmia, Diabetes Mellitus Type 2, Hypertension Denies:: Diabetes Mellitus Type 1 *Have you ever received a pneumonia vaccine?: No *Have you received a flu vaccine this season?: No Other Medical History: Reports: Arthritis Other Surgeries: Yes: Other (heart ablasion x 2, lung biopsy, heart cath) Amputation: No Fractures: No - *Social History Smoking Status: Never smoker Tobacco Type: cigars Alcohol Intake: current Alcohol Intake Frequency:: holidays/special occasions only Substance Use Type: denies use *Occupational Status:: employed Housing: house Household Members: spouse *Travel in the last 8 weeks: None Family Hx:: Cancer, Coronary Artery Disease, Heart Attack Meds Home Medications Medication Instructions Recorded Confirmed Type amlodipine 10 mg tablet 10 mg PO DAILY 08/27/19 11/12/20 History aspirin 81 mg tablet,delayed 81 mg PO DAILY 08/27/19 11/12/20 History release atorvastatin 40 mg tablet 40 mg PO DAILY 08/27/19 11/12/20 History glimepiride 2 mg tablet 2 mg PO DAILY 08/27/19 11/12/20 History Losartan Potassium 100 mg PO DAILY 11/12/20 11/12/20 History Trazodone HCl 150 mg PO HS 11/12/20 11/12/20 History Allergies Allergy/AdvReac Type Severity Reaction Status Date / Time No Known Allergies Allergy Verified 08/27/19 09:32 Exam Vital signs and Labs for Last 24 Hours: Temp Pulse Resp BP Pulse Ox 98.2 F 63 18 135/80 94 L 11/12/20 08:00 11/12/20 08:00 11/12/20 08:00 11/12/20 08:00 11/12/20 08:00 Laboratory Results - last 24 hr 11/11/20 19:28: WBC 11.2 H, RBC 4.73, Hgb 14.0 L, Hct 39.8 L, MCV 84.2, MCH 29.6, MCHC 35.1, RDW 12.6, Plt Count
--- NOTE | 2020-11-12 08:35 | NM_ITS ---
APPROVED REPORT Exam: Nuclear Stress Test Indication: HTN, DM, HYPERLIPIDEMIA, FM HX, C.P., PALPITATIONS Patient Location: Inpatient Stress Tech: Candelariaangelica Andrew [place] Tech:KAYLA Munguia RT (R)(N)(M) Ht: 6 ft 0 in Wt: 227 lbs HR: 68 bpm BP: 147/83 mmHg BSA: 2.25 m2 History: HTN, DM, HYPERLIPIDEMIA, FM HX, C.P., PALPITATIONS Procedure: Patient exercised on Logan protocol 7:00 minutes and sec, resting heart rate 68 bpm, resting blood pressure 147/83 mmHg, with exercise maximum heart rate achived was 142 bpm which is 89 % of the maximum predicted heart rate and blood pressure was 195/84 mmHg. Patient denied any complaint of chest pain. Patient has exercise capacity, achieved 10.1 METs of workload on treadmill, the blood pressure response to exercise was . Cardiac Stress and Resting SPECT Images: Cardiac Stress and Resting SPECT images were obtained using technetium 99m Myoview 32.1 mCi stress and 10.49 mCi at rest. EF normal at 64% with normal wall motion No fixed or reversible defects Conclusion: Normal exam Electronically signed by : Javier Pascual MD 11/12/2020 17:10:50
[2020-11-12 11:24] LABS: POC Glucose,Bedside 179 (70-110)
--- NOTE | 2020-11-12 13:47 | PC.NURSE ---
Pt just arrived back to the floor from stress test
[2020-11-12 14:50] VITALS: BMI 30.7
[2020-11-12 15:51] VITALS: BP 136/82; PULSE 79; RESP 20; TEMP 36.8; O2SAT 97
[2020-11-12 16:00] VITALS: PULSE 90
[2020-11-12 17:21] LABS: POC Glucose,Bedside 231 (70-110)
--- NOTE | 2020-11-12 17:31 | HMH.DCSUM ---
General - General Admission date:: 11/11/20 Discharge date: 11/12/20 HPI HPI: 3 episodes of chest pain over the past 48 hours, anginal in nature, pressure, diaphoresis and sweating. Cardiology consult obtained - results below: 60-year-old male presented to [facility] ED with persistent chest heaviness throughout the night. Patient stated the chest heaviness had started a few days prior while he was watching TV. States the chest heaviness had become worse last evening, lasted for 3 to 4 hours. Patient complains of dull chest discomfort this a.m. Nonradiating. Patient states with chest heaviness he does have shortness of breath. Denies shortness of breath otherwise. Patient does complain of palpitations with exertion. Patient does have a history of 2 heart ablations the last 1 being 10 years ago for palpitations. This was performed at [facility]. Patient denies dizziness. No swelling noted over the lower extremities. Patient does have history of sarcoidosis, which she was diagnosed 10 to 12 years ago. Last heart catheterization was 10 years ago at [facility]. Patient states he was told his heart looked fine. Significant family history of father with multiple MIs. Patient is a non-smoker. Patient does consume occasional beer. Patient is a known diabetic, which is controlled. History of hypertension and hyperlipidemia. These are managed by PCP. This x-ray revealed no acute finding. Serial troponins were noted as negative. Initial EKG noted as sinus bradycardia with no ST abnormalities. Vital signs are stable. Discussed plan of care with Dr. Partida and PCP. Recommended left heart catheterization due to angina to patient. Patient declined and requested a stress test. Patient stated if he is to have a left heart catheterization he would like to have it at [facility]. Obtain echocardiogram to assess for LV function and valve status. Patient is scheduled for Lexiscan Myoview today due to angina. Pending on the results of the echocardiogram and Myoview stress test, medication and therapy changes may be recommended. Please continue to monitor patient in the status. Hospital Course Hospital Course: Ruled out for [place]>.. myoview testing totally normal with normal EF... no further pain... dc home to f/u in 2 weeks. Objective Vital signs: Temp Pulse Resp BP Pulse Ox 98.3 F 79 20 136/82 97 11/12/20 15:51 11/12/20 15:51 11/12/20 15:51 11/12/20 15:51 11/12/20 15:51 no acute distress - *Routine HEENT Exam Head: Present: normocephalic Eye: Present: EOMI, PERRL ENT: Present: mucous membranes moist - *Routine Neck Exam Present: supple - *Routine Respiratory Exam Present: CTA bilaterally - *Routine Cardiovascular Exam Present: RRR - *Routine Abdominal Exam Present: soft, normoactive bowel sounds. Absent: tenderness - *Routine Extremities Exam Absent: cyanosis, clubbing, edema - *Routine Skin Exam Present: warm. Absent: rash - Detailed Eye Exam Eyelids: Bilateral normal inspection Results Labs on day of discharge: Labs from last 24 hours 11/12/20 11/12/20 11/12/20 17:12 11:16 06:19 WBC RBC Hgb Hct MCV MCH MCHC RDW Plt Count MPV Neut % (Auto) Lymph % (Auto) Harnett % (Auto) Eos % (Auto) Baso % (Auto) Neut # (Auto) Lymph # (Auto) [place]ett # (Auto) Eos # (Auto) Baso # (Auto) ESR Sodium 136 Potassium 3.9 Chloride 104 Carbon Dioxide 26 Anion Gap 9.9 BUN 28 H Creatinine 1.40 H Estimated Creat Clear 81 Estimated GFR 52 L Est GFR ( Amer) 62 Glucose 161 H D POC Glucose 231 H 179 H Calcium 9.2 Magnesium Total Bilirubin Direct Bilirubin Conjugated Bilirubin Indirect Bilirubin Unconjugated Bilirubin AST ALT Alkaline Phosphatase Troponin I C-Reactive Protein Total Protein Album
== END 2020-11-12 18:02 | disposition home or self-care (01) ==
LOC: ER 19:16 → 2ND 22:19
PROVIDERS: Emergency Medicine; Admitting Provider Internal Medicine Adolescent Medicine; Emergency Provider Emergency Medicine; PCP Internal Medicine Adolescent Medicine; Visit Provider Internal Medicine Adolescent Medicine
DX: R07.9 Chest pain, unspecified (principal); E11.9 Type 2 diabetes mellitus without complications; I10 Essential (primary) hypertension; E78.5 Hyperlipidemia, unspecified; Z79.899 Other long term (current) drug therapy; Z79.84 Long term (current) use of oral hypoglycemic drugs
CPT/HCPCS: 36415; 71046; 78452; 80048; 80061; 80076; 82962; 83735; 84145; 84436; 84443; 84484; 85025; 85651; 86140; 87581; 87633; 87798; 93005; 93017; 93306; 99284; A9502; G0378

== ENCOUNTER → 2021-01-06 12:19 | Outpatient (CLI) | payer OTHER, SELFPAY ==
--- NOTE | 2021-01-06 12:24 | XR_ITS ---
PROCEDURE: XR FOOT RT MIN 3V CLINICAL INDICATION: RT FOOT PAIN COMPARISON: No exams were available for comparison FINDINGS: Nondisplaced fracture involves the mid shaft of the proximal phalanx of the 2nd toe Prominent osteoarthritic changes are present at the 1st metatarsophalangeal joint with prominent osteophytes at the 1st MTP joint. There is a small calcaneal spur. Other findings:None. IMPRESSION: Nondisplaced fracture proximal phalanx 2nd toe Osteoarthritic change 1st MTP joint Dictated by: Javier Pascual MD 01/06/2021 13:29 Javier Pascual MD in [place] 01/06/2021 13:29
== END ==
PROVIDERS: PCP Nurse Practitioner Family; Visit Provider Internal Medicine Adolescent Medicine
DX: M79.671 Pain in right foot (principal)
CPT/HCPCS: 73630

== ENCOUNTER 2021-01-07 14:24 | Outpatient (RCR) | payer OTHER, SELFPAY | END 2021-01-07 15:30 | disposition home or self-care (01) | LOC: PT 14:24 | PROVIDERS: Visit Provider Nurse Practitioner Family | DX: S92.514A Nondisplaced fracture of proximal phalanx of right lesser toe(s), initial encounter for closed fracture (principal) ==

== ENCOUNTER → 2021-04-16 10:44 | Outpatient (CLI) | payer OTHER, SELFPAY ==
[2021-04-16 11:15] LABS: Basophils # 0.1 K/mm3 (0-0.2); Basophils % 0.7 % (0.1-2.0); Eosinophils # 0.3 K/mm3 (0.0-0.4); Eosinophils % 2.5 % (0.1-12.0); Hematocrit 48.6 % (42.0-52.0); Hemoglobin 16.9 g/dL (14.1-18.0); Lymphocytes # 1.5 K/mm3 (0.7-4.5); Lymphocytes % 12.9 % (10-50); Mean Corpuscular HGB Conc 34.7 g/dL (31.8-35.4); Mean Corpuscular Hemoglobin 30.1 pg (27.0-31.2); Mean Corpuscular Volume 86.6 fl (80-94); Monocytes # 0.8 K/mm3 (0.1-1.0); Monocytes % 6.6 % (1.7-9.3); Neutrophils # 9.1 K/mm3 (1.8-7.8); Neutrophils % 77.4 % (37.0-80.0); Platelet Count 293 K/mm3 (142-424); Red Blood Count 5.61 M/mm3 (4.60-6.20); Red Cell Distribution Width 11.7 % (11.5-17.5); White Blood Count 11.7 K/mm3 (4.8-10.8)
[2021-04-16 11:54] LABS: Chloride 95 mmol/L (98-107); Potassium 4.8 mmoL/L (3.5-5.1); Sodium 133 mmol/L (136-145)
[2021-04-16 11:56] LABS: Blood Urea Nitrogen 30 mg/dl (9-20); Estimated Glomerular Filt Rate 47 ml/min (>60); GFR (African American) 57 ML/MIN (>60)
[2021-04-16 11:57] LABS: Alanine Aminotransferase 21 U/L (12-78); Albumin Level 4.1 g/dl (3.5-5.0); Albumin/Globulin Ratio 1.6 (1.1-1.8); Alkaline Phosphatase 92 U/L (38-126); Anion Gap 13.8 mEq/L (5-15); Aspartate Amino Transferase 21 U/L (17-59); Bilirubin,Total 0.7 mg/dl (0.2-1.3); Calcium 9.4 mg/dl (8.4-10.2); Carbon Dioxide 29 mmol/L (22.0-30.0); Chol/HDL Ratio 7.7 (1-3.5); Cholesterol 199 mg/dl (140-200); Globulin 2.5 g/dL (1.3-3.2); Glucose 256 mg/dl (74-100); HDL Cholesterol 26 mg/dl (40-60); Total Protein,Serum 6.6 g/dl (6.3-8.2)
[2021-04-16 12:06] LABS: Triglycerides 829 mg/dl (30-150)
[2021-04-16 12:22] LABS: Uric Acid 7.5 mg/dl (3.5-8.5)
[2021-04-16 12:33] LABS: Direct LDL Cholesterol 44.08 mg/dL (100-129)
[2021-04-16 12:42] LABS: Hemoglobin A1C 6.2 % (4.0-6.0)
== END ==
PROVIDERS: Visit Provider Internal Medicine Adolescent Medicine
DX: E11.9 Type 2 diabetes mellitus without complications (principal); E78.2 Mixed hyperlipidemia; D86.9 Sarcoidosis, unspecified; Z87.39 Personal history of other diseases of the musculoskeletal system and connective tissue; Z79.84 Long term (current) use of oral hypoglycemic drugs
CPT/HCPCS: 36415; 80053; 80061; 83036; 84550; 85025

== ENCOUNTER → 2022-07-07 10:35 | Outpatient (CLI) | payer OTHER, SELFPAY ==
--- NOTE | 2022-07-07 10:42 | XR_ITS ---
FINAL REPORT CLINICAL HISTORY: HIP PAIN FINDINGS: RIGHT HIP Two views of the right hip with an AP pelvis demonstrate no acute fracture or dislocation. The joint spaces appear normal. The femoral heads have a normal smooth contour. The visualized bony structures are well aligned. No soft tissue abnormality is seen. IMPRESSION: No acute bony abnormality. Reviewed, Interpreted and Dictated by Nate Mosqueda MD Transcribed by Perla Smith Authenticated and [facility]
== END ==
PROVIDERS: PCP Internal Medicine Adolescent Medicine; Visit Provider Internal Medicine Adolescent Medicine
DX: M25.551 Pain in right hip (principal); M79.651 Pain in right thigh
CPT/HCPCS: 73502

== ENCOUNTER 2022-11-28 10:19 | Emergency (ER) | payer OTHER, SELFPAY ==
[2022-11-28 10:24] VITALS: BP 143/92; PULSE 77; RESP 16; TEMP 36.7; O2SAT 98; BMI 32.5
--- NOTE | 2022-11-28 10:36 | EXP.UTC ---
Discharge Plan Disposition Patient Disposition: Home, Self-Care Condition: Good Prescriptions Prescriptions: New prednisone [prednisone] 20 mg tablet 20 mg PO BID 5 Days Qty: 10 0RF No Action atorvastatin 40 mg tablet 40 mg PO DAILY glimepiride 2 mg tablet 2 mg PO DAILY amlodipine 10 mg tablet 10 mg PO DAILY aspirin [Lo-Dose Aspirin] 81 mg tablet,delayed release (DR/EC) 81 mg PO DAILY trazodone 150 MG tablet 150 mg PO HS losartan 100 MG tablet 100 mg PO DAILY clonazepam 1 MG tablet 1 mg PO HS Referrals Follow up/Referrals: Manuel Lawler MD [Primary Care Provider] - See instructions Activity Restrictions/Add. Instructions Additional Instructions/Restrictions: Drink plenty of fluids. Take tylenol for pain. With your decreased kidney function you should avoid NSAIDS (like ibuprofen, etc). Take the medications as directed. Follow up with your regular doctor. GO TO THE ER FOR ANY WORSENING SYMPTOMS Follow your diabetic diet very closely while you are on the steroids. Follow up closely with your primary care physician. You need to start managing your diabetes as good as you possibly can. Clinical Impressions Clinical Impression: Gout attack, Foot pain, left Stand Alone Forms Stand Alone Forms: Work/School Release Discharge ED Provider: Selwyn Null [facility] [place] General Stated complaint: possible gout in Lt foot, swollen Time Seen by Provider: 11/28/22 10:36 History of Present Illness Provider Complaint: He states that for the past 3 days he has had left foot pain, redness and swelling. He states that his pain has been severe. He was told it was probably gout by his pcp and he was started on cholcrys. He states that he has finished that medication and it has not helped his symptoms. He has a history of diabetes. He denies fever/chills. Related Data Home Medications Medication Instructions Recorded Confirmed amlodipine 10 mg tablet 10 mg PO DAILY High blood pressure 08/27/19 11/12/20 aspirin 81 mg tablet,delayed 81 mg PO DAILY heart health 08/27/19 11/12/20 release (Lo-Dose Aspirin) atorvastatin 40 mg tablet 40 mg PO DAILY Cholesterol 08/27/19 11/12/20 glimepiride 2 mg tablet 2 mg PO DAILY Diabetes 08/27/19 11/12/20 clonazepam 1 mg tablet 1 mg PO HS Insomnia 11/12/20 11/12/20 losartan 100 mg tablet 100 mg PO DAILY Hypertension 11/12/20 11/12/20 trazodone 150 mg tablet 150 mg PO HS Sleep 11/12/20 11/12/20 Previous Rx's Medication Instructions Recorded prednisone 20 mg tablet 20 mg PO BID 5 days #10 tabs 11/28/22 Allergies Allergy/AdvReac Type Severity Reaction Status Date / Time No Known Allergies Allergy Verified 11/28/22 10:49 [facility] Disclaimer: The information contained in this section may have been updated after the patient was seen, as this information can be updated by other users. Social History Smoking Status: Never smoker alcohol intake: current substance use type: denies use current occupational status: employed Travel in the last 8 weeks: None household members: spouse housing: house caffeine: No ROS Obtained: Yes All systems reviewed & no additional complaints except as documented Constitutional Constitutional: Denies chills and Denies fever(s) Eyes Eyes: Denies eye discharge ENT Ears, Nose, Mouth, and Throat: Denies dizziness, Denies otalgia and Denies sore throat Cardiovascular Cardiovascular: Denies chest pain Respiratory Respiratory: Denies shortness of breath, Denies chest congestion, Denies cough, Denies stridor and Denies wheezing Gastrointestinal Gastrointestingal: Denies nausea or vomiting Musculoskeletal Musculoskeletal: Reports as per HPI Integumentary/Breasts Skin/Breast: Reports as per HPI Neurologic Neurologic: Denies dizziness and Denies paresthesias Allergic/Immunologic Allergic/Immunologic: Denies
[2022-11-28 10:46] VITALS: BP 139/88; PULSE 78; RESP 20; TEMP 37; O2SAT 97; BMI 32.5
[2022-11-28 11:28] LABS: Basophils # 0.1 K/mm3 (0-0.2); Basophils % 0.6 % (0.1-2.0); Eosinophils # 0.3 K/mm3 (0.0-0.4); Hematocrit 47.9 % (42.0-52.0); Lymphocytes # 1.2 K/mm3 (0.7-4.5); Lymphocytes % 13.2 % (10-50); Mean Corpuscular HGB Conc 33.5 g/dL (31.8-35.4); Mean Corpuscular Hemoglobin 29.2 pg (27.0-31.2); Mean Corpuscular Volume 87.1 fl (80-94); Mean Platelet Volume 7.7 fl (7.4-10.4); Monocytes # 0.5 K/mm3 (0.1-1.0); Monocytes % 5.8 % (1.7-9.3); Neutrophils # 6.9 K/mm3 (1.8-7.8); Neutrophils % 77.4 % (37.0-80.0); Platelet Count 275 K/mm3 (142-424); Red Cell Distribution Width 12.4 % (11.5-17.5)
[2022-11-28 11:29] LABS: Chloride 99 mmol/L (98-107); Potassium 4.4 mmoL/L (3.5-5.1); Sodium 134 mmol/L (136-145)
[2022-11-28 11:32] LABS: Anion Gap 16.4 mEq/L (5-15); Blood Urea Nitrogen 23 mg/dl (9-20); Carbon Dioxide 23 mmol/L (22.0-30.0); Creatinine Clearance Estimated 78 mL/min (50-200); Estimated Glomerular Filt Rate 47 ml/min (>60); GFR (African American) 57 ML/MIN (>60); Glucose 357 mg/dl (74-100)
[2022-11-28 11:38] LABS: C-Reactive Protein 21.2 mg/L (0-4)
[2022-11-28 11:47] LABS: Uric Acid 8.6 mg/dl (3.5-8.5)
[2022-11-28 12:02] LABS: Erythrocyte Sedimentation Rate 12 mm/hr (0-20)
[2022-11-28 12:19] VITALS: BP 139/88; PULSE 78; RESP 20; TEMP 37; O2SAT 97
== END 2022-11-28 12:19 | disposition home or self-care (01) ==
PROVIDERS: Emergency Provider Nurse Practitioner Family; PCP Internal Medicine Adolescent Medicine
DX: M10.9 Gout, unspecified (principal); M79.672 Pain in left foot; E11.9 Type 2 diabetes mellitus without complications; Z79.84 Long term (current) use of oral hypoglycemic drugs
CPT/HCPCS: 80048; 84550; 85025; 85651; 86140; 99212; 99214; G0463

== ENCOUNTER 2023-02-04 02:47 | Inpatient (IN) | payer OTHER, SELFPAY ==
[2023-02-04] VITALS (32 sets, daily range): BP systolic 102–166; BP diastolic 58–91; PULSE 50–73; RESP 9–20; TEMP 36.1–37.1; O2SAT 90–99; BMI 32.5; BMI 32.3; BMI 32.2
--- NOTE | 2023-02-04 02:46 | ECG_ITS ---
APPROVED REPORT Exam: Resting ECG HR:65 bpm ECG Measurements Heart Rate 65 AXES TX 268 P 24 QRSd 94 QRS -32 QT 415 T 19 QTc 427 Conclusion SINUS RHYTHM WITH FIRST DEGREE AV BLOCK Normal Byron Late R wave progression Isolated Q in III ABNORMAL ECG UNCONFIRMED REPORT Electronically signed by : Manuel Lawler MD 02/04/2023 16:18:13
--- NOTE | 2023-02-04 02:48 | XR_ITS ---
PROCEDURE INFORMATION: Exam: XR Chest Exam date and time: 02/04/2023 3:28 AM Age: 62 years old Clinical indication: Pain; Angina pectoris; Additional info: Chest pain TECHNIQUE: Imaging protocol: Radiologic exam of the chest. Views: 2 views. COMPARISON: CR XR CHEST 2V 11/11/2020 7:41 PM FINDINGS: Lungs: Unremarkable. No consolidation. Pleural spaces: Unremarkable. No pleural effusion. No pneumothorax. Heart/Mediastinum: Unremarkable. No cardiomegaly. Bones/joints: Unremarkable. IMPRESSION: No acute findings.
[2023-02-04 03:09] LABS: Basophils # 0.1 K/mm3 (0-0.2); Basophils % 0.9 % (0.1-2.0); Eosinophils # 0.3 K/mm3 (0.0-0.4); Eosinophils % 3.7 % (0.1-12.0); Hematocrit 49.7 % (42.0-52.0); Hemoglobin 16.8 g/dL (14.1-18.0); Mean Corpuscular HGB Conc 33.8 g/dL (31.8-35.4); Mean Corpuscular Hemoglobin 29.2 pg (27.0-31.2); Mean Corpuscular Volume 86.3 fl (80-94); Mean Platelet Volume 7.5 fl (7.4-10.4); Monocytes # 0.6 K/mm3 (0.1-1.0); Monocytes % 7.2 % (1.7-9.3); Neutrophils % 63.3 % (37.0-80.0); Platelet Count 303 K/mm3 (142-424); Red Blood Count 5.76 M/mm3 (4.60-6.20); Red Cell Distribution Width 12.8 % (11.5-17.5)
[2023-02-04 03:15] LABS: Alanine Aminotransferase 41 U/L (12-78); Albumin Level 4.6 g/dl (3.5-5.0); Alkaline Phosphatase 124 U/L (38-126); Amylase 84 U/L (30-110); Aspartate Amino Transferase 40 U/L (17-59); Bilirubin,Direct 0.1 mg/dl (0.0-0.4); Bilirubin,Indirect 0.5 mg/dL (0.0-0.9); Bilirubin,Total 0.6 mg/dl (0.2-1.3); Bilirubin,Unconjugated 0.5 mg/dL (0.0-1.1); Blood Urea Nitrogen 22 mg/dl (9-20); Carbon Dioxide 29 mmol/L (22.0-30.0); Chloride 96 mmol/L (98-107); Creatinine Clearance Estimated 73 mL/min (50-200); Estimated Glomerular Filt Rate 44 ml/min (>60); GFR (African American) 53 ML/MIN (>60); Glucose 273 mg/dl (74-100); Lipase 364 U/L (23-300); Sodium 138 mmol/L (136-145); Total Protein,Serum 7.9 g/dl (6.3-8.2)
[2023-02-04 03:32] LABS: Troponin I < 0.01 ng/ml (0.00-0.034)
[2023-02-04 03:34] LABS: T4 (Thyroxine) 6.8 ug/dl (5.53-11.0)
[2023-02-04 03:41] LABS: Erythrocyte Sedimentation Rate 3 mm/hr (0-20)
--- NOTE | 2023-02-04 03:45 | HMH.EDCP ---
Discharge Plan Disposition Patient Disposition: Admitted Chief Complaint: Chest Pain Clinical Impressions Clinical Impression: Angina pectoris, unstable, Diabetes mellitus, Renal insufficiency, Sarcoidosis Discharge ED Provider: [place] (ED)Hubert Chest Pain HPI General Chief Complaint: Chest Pain Stated Complaint: Chest Pain Time Seen by Provider: 02/04/23 03:00 Mode of Arrival: Family Vehicle Source of Information: Patient and Medical Record Limitations: No Limitations Description of Symptoms (Recalled from ER Triage Doc. by RN): 62 yo male presented with CC of chest tightness that woke me up from sleep . According to the patient he was asleep, the pain began, radiating down both arms and back up into the left anterior chest wall. Patient reports history of atrial fib, x2 ablations, a history of bradycardia that was treated and resolved. No diagnosis of past [place]. Seen by cardiology at [facility]. [facility]. Takes a daily ASA up until yesterday when he ran out of supply and hadn't had a chance to restock. No h/o CHF, no H/O of other comorbidities. History of Present Illness HPI narrative: pt with acute onset of chest tightness this am with rad to bilat upper ext which has dec and but never completely gone - has had a fib in past and ablaions - hx of diabetes mellitus and sarcoid MD complaint: chest pain indicative of cardiac Onset (ago): hour(s) Duration: intermittent Activity at onset: awoke with symptoms Pain location: left chest Severity: moderate Quality: tightness Pain radiation: RUE and LUE Relieving factors: nothing Risk Factors for CAD: Family Hx of CAD and Diabetes Treatments prior to or on arrival for Cardiac Chest Pain: none DALILA Score for Non-Stemi Age of Patient: 60-69 years old Heart Rate: 50-69 bpm Systolic Blood Pressure: 100-119 mmHg Serum Creatinine: 1.60-1.99 mg/dl CHF Kill[place] Class: I-No CHF Other Risk Factors: None Non-Stemi Risk Score: 117 Risk Stratification: 109-140 = Intermediate Ri Related Data Home Medications Medication Instructions Recorded Confirmed amlodipine 10 mg tablet 10 mg PO DAILY High blood pressure 08/27/19 02/04/23 aspirin 81 mg tablet,delayed 81 mg PO DAILY heart health 08/27/19 02/04/23 release (Lo-Dose Aspirin) atorvastatin 40 mg tablet 40 mg PO DAILY Cholesterol 08/27/19 02/04/23 glimepiride 2 mg tablet 2 mg PO DAILY Diabetes 08/27/19 02/04/23 clonazepam 1 mg tablet 1 mg PO HS Insomnia 11/12/20 02/04/23 losartan 100 mg tablet 100 mg PO DAILY Hypertension 11/12/20 02/04/23 trazodone 150 mg tablet 150 mg PO HS Sleep 11/12/20 02/04/23 dapagliflozin propanediol 10 mg 10 mg PO DAILY Diabetes 02/04/23 02/04/23 tablet (Farxiga) hydrochlorothiazide 25 mg tablet 25 mg PO DAILY Hypertension 02/04/23 02/04/23 prednisone 20 mg tablet 20 mg PO NEEDED PRN prn 02/04/23 02/04/23 sitagliptin phosphate 100 mg 100 mg PO DAILY Diabetes 02/04/23 02/04/23 tablet (Januvia) Allergies Allergy/AdvReac Type Severity Reaction Status Date / Time No Known Allergies Allergy Verified 11/28/22 10:49 [facility] Disclaimer: The information contained in this section may have been updated after the patient was seen, as this information can be updated by other users. Medical History (Updated 02/04/23 @ 06:22 by Hubert SOOD)MD) Diabetes mellitus, type 2 Gout History of left heart catheterization (LHC) Hyperlipidemia Hypertension Insomnia disorder Surgical History (Updated 02/03/23 @ 10:43 by Cheryl Oropeza RN) History of cardiac radiofrequency ablation (RFA) History of lung biopsy Family History (Updated 02/03/23 @ 10:45 by Cheryl Oropeza RN) Other Family history of cancer Family history of coronary artery disease Family history of myocardial infarction Social History (Updated 02/03/23 @ 10:45 by Cheryl Oropeza RN) Smoking Status: Unknown if ever smoked alcohol intake: current substance use type: denies use current occupational status: employed
[2023-02-04 03:48] LABS: Thyroid Stimulating Hormone 1.44 uIU/mL (0.465-4.68)
--- NOTE | 2023-02-04 04:42 | ECG_ITS ---
APPROVED REPORT Exam: Resting ECG HR:57 bpm ECG Measurements Heart Rate 57 AXES AL 294 P 43 QRSd 101 QRS 4 QT 448 T 45 QTc 443 Conclusion SINUS BRADYCARDIA WITH FIRST DEGREE AV BLOCK INDETERMINATE AXIS SEPTAL MYOCARDIAL INFARCTION , OF INDETERMINATE AGE [40+ ms Q WAVE IN V1/V2] ABNORMAL ECG UNCONFIRMED REPORT Electronically signed by : Manuel Lawler MD 02/04/2023 16:17:32
[2023-02-04 05:35] LABS: Coronavirus 19, PCR Not Detected (NotDetected); Influenza A, PCR Not Detected (NotDetected); Influenza B, PCR Not Detected (NotDetected)
[2023-02-04 07:03] LABS: Troponin I 0.11 ng/ml (0.00-0.034)
--- NOTE | 2023-02-04 07:47 | HMH.PHAINT1 ---
Pharmacy Intervention Comments: verified home medication list using list from outpatient pharmacy [facility]
--- NOTE | 2023-02-04 07:51 | EXP.HP ---
History of Present Illness *Admission Date: 02/04/23 *Reason for visit:: Chest pain/pressure *History of present illness: 62-year-old male with history of diabetes, sarcoidosis, history of atrial fibrillation and is has undergone ablation through [facility] cardiology, usually follows Dr. Boyd at [facility] cardiology, woke up around 3:00 this morning with chest pressure and pain, felt dyspneic, and drove himself to the emergency room. In the ER was evaluated for non-STEMI and ACS. Initial troponin negative, second troponin 0.11. Admitted to hospital for further diagnosis and cardiology evaluation. He feels better on rounds this morning. [facility] Disclaimer: The information contained in this section may have been updated after the patient was seen, as this information can be updated by other users. Medical History (Updated 02/04/23 @ 06:22 by Hubert Brannon MD (ED)) Diabetes mellitus, type 2 Gout History of left heart catheterization (LHC) Hyperlipidemia Hypertension Insomnia disorder Surgical History (Updated 02/03/23 @ 10:43 by Cheryl Oropeza RN) History of cardiac radiofrequency ablation (RFA) History of lung biopsy Family History (Updated 02/03/23 @ 10:45 by Cheryl Oropeza RN) Family history of cancer Family history of coronary artery disease Family history of myocardial infarction Social History (Updated 02/03/23 @ 10:45 by Cheryl Oropeza RN) Smoking Status: Unknown if ever smoked alcohol intake: current substance use type: denies use current occupational status: employed Travel in the last 8 weeks: None household members: spouse housing: house marital status: caffeine: No special jina needs: No do you feel safe at home: Yes victim of physical abuse: No victim of emotional abuse: No victim of sexual abuse: No would you like helpful sources: No Review of Systems Review of Systems Review of systems:: pertinent systems reviewed and negative unless documented below Meds Home Medications and Allergies Home Medications Medication Instructions Recorded Confirmed Type amlodipine 10 mg tablet 10 mg PO DAILY High blood pressure 08/27/19 02/04/23 History aspirin 81 mg tablet,delayed 81 mg PO DAILY heart health 08/27/19 02/04/23 History release (Lo-Dose Aspirin) atorvastatin 40 mg tablet 40 mg PO DAILY Cholesterol 08/27/19 02/04/23 History glimepiride 2 mg tablet 2 mg PO DAILYDM Diabetes 08/27/19 02/04/23 History trazodone 150 mg tablet 150 mg PO HS Sleep 11/12/20 02/04/23 History dapagliflozin propanediol 10 mg 10 mg PO DAILY Diabetes/heart 02/04/23 02/04/23 History tablet (Farxiga) failure hydrochlorothiazide 25 mg tablet 25 mg PO DAILY High blood pressure 02/04/23 02/04/23 History sitagliptin phosphate 100 mg 100 mg PO DAILYDM Diabetes 02/04/23 02/04/23 History tablet (Januvia) New Prescriptions to Start Prescriptions: Allergies Allergy/AdvReac Type Severity Reaction Status Date / Time No Known Allergies Allergy Verified 11/28/22 10:49 Exam Data for Last 24 hours Vital signs and Labs for Last 24 Hours: Temp Pulse Resp BP Pulse Ox 98.2 F 56 L 17 120/70 93 L 02/04/23 06:59 02/04/23 06:59 02/04/23 06:59 02/04/23 06:59 02/04/23 06:59 Laboratory Results - last 24 hr 02/04/23 02:48: WBC 8.0, RBC 5.76, Hgb 16.8, Hct 49.7, MCV 86.3, MCH 29.2, MCHC 33.8, RDW 12.8, Plt Count 303, MPV 7.5, Neut % (Auto) 63.3, Lymph % (Auto) 25.0, Davison % (Auto) 7.2, Eos % (Auto) 3.7, Baso % (Auto) 0.9, Neut # (Auto) 5.0, Lymph # (Auto) 2.0, Davison # (Auto) 0.6, Eos # (Auto) 0.3, Baso # (Auto) 0.1, ESR 3 02/04/23 02:48: Sodium 138, Potassium 4.0, Chloride 96 L, Carbon Dioxide 29, Anion Gap 17.0 H, BUN 22 H, Creatinine 1.60 H, Estimated Creat Clear 73, Estimated GFR 44 L, Est GFR ( Amer) 53 L, Glucose 273 H, Calcium 9.0, Total Bilirubin 0.6, Direct Bilirubin 0.1, Conjugated Bilirubin 0.0, Indirect Bilirubin 0.5, Unconjugated Bilirubin 0.5,
--- NOTE | 2023-02-04 09:23 | EXP.CARD.CON ---
History of Present Illness History of Present Illness Consult date: 02/04/23 Requesting physician: Manuel Lawler Consult reason: chest pain Chief complaint: chest pain History of present illness: This is a 62-year-old white gentleman who presented to the emergency department with complaints of chest pain. He states that his chest pain woke him up from his sleep around 2 AM this morning. The patient reports that prior to going to bed last night around 1130 he had some profound diaphoresis and just felt really hot. He states that this is really unusual for him. He states that he turned on the ceiling fan and then went on to sleep. Around 2 AM he was awoken by a sudden onset of chest pain. He states that this was an anterior, stabbing, tight sensation in the left anterior aspect of his chest that radiated down both arms. It was associated with shortness of breath and diaphoresis. He states that this was a 7 out of 10 in intensity. He states nothing worsened or improved his pain. He states that he had never had pain this bad before so he decided to drive himself to the emergency department. The patient was found to have a non-STEMI and admitted to the hospital. He reports that he had a left cardiac catheterization in the past and was told that it was normal for his age. He does have a history of atrial fibrillation with ablation x2. He sees Dr. Boyd at [facility] in [facility]. He states that his chest pain has improved at this time. He denies any fever, chills, nausea, vomiting, diarrhea, PND orthopnea. He denies any lower extremity edema. [facility] Disclaimer: The information contained in this section may have been updated after the patient was seen, as this information can be updated by other users. Medical History (Updated 02/04/23 @ 09:29 by Alba Crawford APRN) Abnormal electrocardiogram [ECG] [EKG] Angina pectoris Diabetes mellitus Diabetes mellitus, type 2 Gout History of left heart catheterization (LHC) Hyperlipidemia Hypertension Insomnia disorder Non-STEMI (non-ST elevated myocardial infarction) Paroxysmal atrial fibrillation Surgical History History of cardiac radiofrequency ablation (RFA) History of lung biopsy Family History (Updated 02/04/23 @ 08:14 by Evan Yoder RN) Other Diabetes Family history of cancer Family history of coronary artery disease Family history of myocardial infarction Social History (Updated 02/04/23 @ 08:13 by Evan Yoder RN) Smoking Status: Former smoker alcohol intake: current substance use type: denies use current occupational status: employed Travel in the last 8 weeks: None household members: spouse housing: house marital status: number of children: 3 caffeine: No jina/lutheran: Buddhism special jina needs: No do you feel safe at home: Yes victim of physical abuse: No victim of emotional abuse: No victim of sexual abuse: No would you like helpful sources: No Review of Systems Review of Systems Review of systems:: pertinent systems reviewed and negative unless documented below Constitutional Constitutional: Reports system reviewed and no additional complaints, except as documented Eyes Eyes: Reports system reviewed and no additional complaints, except as documented ENT Ears, Nose, Mouth, and Throat: Reports system reviewed and no additional complaints, except as documented *Cardiovascular Cardiovascular: Reports system reviewed and no additional complaints, except as documented, Reports chest pain, Reports chest pain at rest, Reports chest pain with activity, Reports diaphoresis, Reports dyspnea, Reports dyspnea on exertion and Reports radiating jaw, neck or arm pain *Respiratory Respiratory: Reports system reviewed and no additional complaints, except as documented, Reports dyspnea and Reports dyspnea on exertion *Gastrointestinal Gastroin
[2023-02-04 10:08] LABS: Troponin I 0.41 ng/ml (0.00-0.034)
--- NOTE | 2023-02-04 10:12 | PC.NURSE ---
clarified meds prior to heart cath with Alba Crawford for amlodipine r/t pt being bradycardic and reported critical troponin lab of 0.41
--- NOTE | 2023-02-04 10:20 | PC.NURSE ---
COURTESY TECH NOTE; ROUNDED ON PT 0850, PT DENIED NEED FOR ASSISTANCE WITH RESTROOM, NEED TO REPOSITION, OR DRINK. CALL LIGHT WITHIN REACH, NO FURTHER REQUESTS AT THIS TIME KEISHA ROBERT
[2023-02-04 10:52] LABS: POC Glucose,Bedside 155 (70-110)
--- NOTE | 2023-02-04 13:29 | IR_ITS ---
APPROVED REPORT Patient Location: Inpatient Hand Potter: KAYLA Cope RT (R) PROCEDURES Left heart catheterization Left ventriculogram Selective coronary angiogram Drug-eluting stent deployment to the proximal mid and distal right coronary artery Drug-eluting stent deployment to the proximal circumflex artery Drug-eluting stent deployment to the posterior descending artery off the circumflex artery INDICATION Acute non-ST elevation myocardial infarction, Coronary artery disease Informed consent was obtained prior to the procedure. COMPLICATIONS None Estimated Blood Loss: Less than 10 mls TECHNIQUE One percent lidocaine used to anesthetize the right anterior aspect of the wrist. The right radial artery was accessed via the Seldinger technique. A 6 Estonian sheath was placed in the right radial artery. 150 mg magnesium sulfate, 800 mcg of nitroglycerin, 1mg Lidocaine and 5000 U Heparin were given through the arterial sheath. The papa catheter was also used to perform left heart catheterization, left ventriculogram and selective coronary angiogram. At the end of the diagnostic angiogram the guide catheter was placed in the right coronary artery followed by Choice PT extra-support wire. A 3 mm [address] frontier stent was deployed at 20 rakesh reducing the stenosis to 0%. An additional 3 mm x [address] frontier stent was placed proximal to this yet still overlapping and deployed at 22 rakesh. An additional 3 mm x 18 mm Cope frontier stent was placed proximal to this yet still overlapping and deployed at 24 rakesh. Excellent angiographic results were obtained with MANOLO-3 flow being present down the vessel before and after the procedure. Following this an AL-1 guide catheter was placed in the left main artery and a Choice PT extra-support wire was placed into the circumflex artery. A guide liner was advanced and the wire was placed into the posterior descending artery off the circumflex artery. A 2 mm x 20 mm balloon was deployed at 12 and then 18 rakesh to predilate the stenosis. A 2.[address] frontier stent was placed in the posterior descending artery off the circumflex artery and deployed at 18 rakesh. Following this an additional 3 mm x 26 mm Cope frontier stent was placed proximal to the for stent yet still overlapping and deployed at 20 rakesh. The balloon was advanced into the proximal and midportion of the posterior descending artery stent and then deployed at 20 rakesh to post dilate. MANOLO 0 flow was present at the beginning of the procedure in the posterior descending artery with MANOLO III flow at the end of the procedure. MANOLO-3 flow was present in the circumflex artery before and after the procedure. At the end of procedure the apparatus was removed the sheath was removed and hemostasis was achieved using TR banding patient was transferred to the postop putting in stable condition ANGIOGRAPHIC RESULTS The left main artery Normal The left anterior descending artery Has a long proximal mid vessel 40 to 50% stenosis The circumflex artery Is a dominant vessel and has proximal 30 and 40% stenosis and then subtotally occluded in mid segment. Following stenting the circumflex artery is wide patent with inline flow into a large posterior descending artery The right coronary artery Is a nondominant yet still large vessel and has proximal 90% mid vessel 50% and distal 80% stenoses. Following stenting the right coronary artery was widely patent with excellent inline flow distally The BLANCA ventriculogram reveals Normal 60% The left ventricular end-diastolic pressure 20 mmHg IMPRESSION Severe to critical two-vessel coronary disease as described above with successful stenting of the proximal mid
--- NOTE | 2023-02-04 13:40 | PC.NURSE ---
COURTESY TECH NOTE; ROUNDED ON PT 1145, PT REFUSED BATHING TWICE, PT DENIED NEED FOR ASSISTANCE WITH RESTROOM, DRINK, AND NEED TO REPOSITION. CALL LIGHT WITHIN REACH, NO FURTHER REQUESTS AT THIS TIME KEISHA ROBERT
--- NOTE | 2023-02-04 14:33 | PC.NURSE ---
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
[2023-02-04 15:40] LABS: CATHL Activated Clotting Time 251 SEC (74-125)
[2023-02-04 15:41] LABS: CATHL Activated Clotting Time 305 SEC (74-125)
[2023-02-04 16:24] LABS: POC Glucose,Bedside 106 (70-110)
[2023-02-04 21:45] LABS: POC Glucose,Bedside 236 (70-110)
[2023-02-05] VITALS: BP 139/79; PULSE 61; PULSE 62; RESP 18; TEMP 36.9; O2SAT 94
[2023-02-05 04:00] VITALS: BP 136/77; PULSE 63; RESP 18; TEMP 36.5; O2SAT 93; BMI 33.5
[2023-02-05 05:42] VITALS: PULSE 56
[2023-02-05 06:13] LABS: POC Glucose,Bedside 170 (70-110)
--- NOTE | 2023-02-05 06:59 | PC.NURSE ---
Patient has rested though the night. Dressing to the right wrist is clean, dry, intact with 4x4 and tegaderm. Patient did refuse insulin both times
[2023-02-05 07:21] LABS: Basophils # 0.1 K/mm3 (0-0.2); Basophils % 0.6 % (0.1-2.0); Eosinophils # 0.4 K/mm3 (0.0-0.4); Eosinophils % 3.8 % (0.1-12.0); Hematocrit 41.6 % (42.0-52.0); Lymphocytes # 1.4 K/mm3 (0.7-4.5); Lymphocytes % 14.6 % (10-50); Mean Corpuscular HGB Conc 33.7 g/dL (31.8-35.4); Mean Corpuscular Hemoglobin 28.7 pg (27.0-31.2); Mean Corpuscular Volume 85.1 fl (80-94); Mean Platelet Volume 7.4 fl (7.4-10.4); Monocytes # 0.7 K/mm3 (0.1-1.0); Monocytes % 7.1 % (1.7-9.3); Neutrophils # 7.1 K/mm3 (1.8-7.8); Neutrophils % 73.9 % (37.0-80.0); Platelet Count 231 K/mm3 (142-424); Red Blood Count 4.89 M/mm3 (4.60-6.20); Red Cell Distribution Width 12.7 % (11.5-17.5); White Blood Count 9.7 K/mm3 (4.8-10.8)
[2023-02-05 07:27] LABS: Chloride 104 mmol/L (98-107); Sodium 136 mmol/L (136-145)
[2023-02-05 07:28] LABS: Potassium 4.1 mmoL/L (3.5-5.1)
[2023-02-05 07:31] VITALS: BP 136/76; PULSE 63; RESP 18; TEMP 36.1; O2SAT 96
[2023-02-05 07:31] LABS: Anion Gap 10.1 mEq/L (5-15); Blood Urea Nitrogen 18 mg/dl (9-20); Calcium 8.2 mg/dl (8.4-10.2); Carbon Dioxide 26 mmol/L (22.0-30.0); Creatinine Clearance Estimated 86 mL/min (50-200); Estimated Glomerular Filt Rate 51 ml/min (>60); GFR (African American) 62 ML/MIN (>60); Glucose 147 mg/dl (74-100); Magnesium 1.9 mg/dl (1.6-2.3)
[2023-02-05 08:00] VITALS: O2SAT 96
--- NOTE | 2023-02-05 08:48 | EXP.DC.SUM ---
General Admission date:: 02/04/23 Discharge date: 02/05/23 HPI HPI HPI: 62-year-old male with history of diabetes, sarcoidosis, history of atrial fibrillation and is has undergone ablation through [facility] cardiology, usually follows Dr. Boyd at [facility] cardiology, woke up around 3:00 this morning with chest pressure and pain, felt dyspneic, and drove himself to the emergency room. In the ER was evaluated for non-STEMI and ACS. Initial troponin negative, second troponin 0.11. Admitted to hospital for further diagnosis and cardiology evaluation. He feels better on rounds this morning. Hospital Course Hospital Course Hospital Course: Patient was admitted, ruled in for non-STEMI. Cardiology consultation was obtained and patient was taken to the [facility] on the day of admission. Please see notes below re: intervention results: ANGIOGRAPHIC RESULTS The left main artery Normal The left anterior descending artery Has a long proximal mid vessel 40 to 50% stenosis The circumflex artery Is a dominant vessel and has proximal 30 and 40% stenosis and then subtotally occluded in mid segment.? Following stenting the circumflex artery is wide patent with inline flow into a large posterior descending artery The right coronary artery Is a nondominant yet still large vessel and has proximal 90% mid vessel 50% and distal 80% stenoses.? Following stenting the right coronary artery was widely patent with excellent inline flow distally The BLANCA ventriculogram reveals Normal 60% The left ventricular end-diastolic pressure 20 mmHg IMPRESSION Severe to critical two-vessel coronary disease as described above with successful stenting of the proximal mid distal right coronary reducing critical disease to 0% with 3 contiguous drug-eluting stents Successful stenting of the proximal and mid circumflex artery 100% occlusion reduced to 0% with 1 drug-eluting stent followed by a contiguous drug-eluting stent and an acutely occluded posterior descending artery reducing all stenoses to 0% and giving inline flow throughout the circumflex artery Normal ejection fraction Mildly elevated LVEDP Persistent moderate stenosis in the proximal and mid LAD PLAN 1. Dual antiplatelet therapy 2. LDL less than 55 to be achieved with high intensity statin 3. Avoidance of tobacco products 4. IV fluids overnight check creatinine in the morning prior to discharge home.? Monitor for contrast nephropathy 5. Aggressive risk factor modification 6. Cardiac rehabilitation 7. I would like for patient to undergo exercise Myoview in 6 weeks to determine if the anterior wall lesion is ischemia producing Electronically signed by : Efrem Partida MD? 02/04/2023 15:34:25 Patient did well overnight. Creatinine decreased to 1.4 which is actually below his baseline. Plan will be to discharge patient with Brilinta, aspirin, he is already on SGLT2 and statin. We will follow him closely in the office and schedule testing as noted above. Exam Data for Last 24 hours Vital signs and Labs for Last 24 Hours: Temp Pulse Resp BP Pulse Ox 97.0 F L 63 18 136/76 96 02/05/23 07:31 02/05/23 07:31 02/05/23 07:31 02/05/23 07:31 02/05/23 07:31 Laboratory Results - last 24 hr 02/04/23 09:40: Troponin I 0.41 H 02/04/23 10:37: POC Glucose 155 H 02/04/23 14:56: Activated Clotting Time 251 H* 02/04/23 15:11: Activated Clotting Time 305 H* D 02/04/23 16:14: POC Glucose 106 02/04/23 20:21: POC Glucose 236 H 02/05/23 06:04: POC Glucose 170 H 02/05/23 06:58: WBC 9.7, RBC 4.89, Hgb 14.0 L, Hct 41.6 L, MCV 85.1, MCH 28.7, MCHC 33.7, RDW 12.7, Plt Count 231, MPV 7.4, Neut % (Auto) 73.9, Lymph % (Auto) 14.6, [place] % (Auto) 7.1, Eos % (Auto) 3.8, Baso % (Auto) 0.6, Neut # (Auto) 7.1, Lymph # (Auto) 1.4, [place] # (Auto) 0.7, Eos # (Auto) 0.4, Baso # (Auto) 0.1 02/05/23 06:58: Sodium 136, Potassium 4.1, Chloride 104, Carbon Dioxide 26, Anion Gap 10.1, BUN 18, Creatinine 1.40 H, Estimated Crea
--- NOTE | 2023-02-05 09:42 | P.CONPHA_ITS ---
[facility] Gender Studies Professor Discharge Med Systems Integration Advisor: Selwyn Quirozson has received discharge medication counseling on the following medications: ASPIRIN 81 MG DAILY ATORVASTATIN 40 MG DAILY BRILINTA 90 MG BID MD INDICATED IN NOTE THAT BP WAS WELL CONTROLLED WITH HCTZ AND AMLODIPINE. OTHER MEDS NOT INDICATED AT THIS TIME.
--- NOTE | 2023-02-07 15:02 | CARE MANAGER ---
Spoke with patient who states he is feeling well. He has already made his follow up appointments. He denies any questions or concerns. He also received his medication. CASA Parra
== END 2023-02-05 10:04 | disposition home or self-care (01) | DRG 246 ==
LOC: ER 03:22 → 2ND 06:22
PROVIDERS: Internal Medicine; Admitting Provider Family Medicine; Emergency Provider Emergency Medicine; PCP Internal Medicine Adolescent Medicine; Visit Provider Internal Medicine Adolescent Medicine
PROC: 027237Z Dilation of Coronary Artery, Three Arteries with Four or More Drug-eluting Intraluminal Devices, Percutaneous Approach (ICD-10-PCS; principal; 2023-02-04 13:00)
DX: I21.4 Non-ST elevation (NSTEMI) myocardial infarction (principal); I25.119 Atherosclerotic heart disease of native coronary artery with unspecified angina pectoris; E11.9 Type 2 diabetes mellitus without complications; D86.9 Sarcoidosis, unspecified; E78.49 Other hyperlipidemia; I10 Essential (primary) hypertension; G47.00 Insomnia, unspecified; M10.9 Gout, unspecified; Z79.84 Long term (current) use of oral hypoglycemic drugs; I48.0 Paroxysmal atrial fibrillation; Z87.891 Personal history of nicotine dependence; E78.5 Hyperlipidemia, unspecified
CPT/HCPCS: 36415; 71046; 80048; 80076; 82150; 82962; 83690; 83735; 84436; 84443; 84484; 85025; 85347; 85651; 86140; 87636; 92928; 92929; 92941; 93005; 93306; 93458; 99152; 99153; 99285; C1725; C1769; C1874; C1876; C9600; C9601; C9606; C9803; G0378; J1644; J2405; Q9967; U0003; U0005

== ENCOUNTER → 2023-02-11 12:06 | Outpatient (CLI) | payer OTHER, SELFPAY ==
[2023-02-11 13:03] LABS: Basophils # 0.1 K/mm3 (0-0.2); Basophils % 0.8 % (0.1-2.0); Eosinophils # 0.4 K/mm3 (0.0-0.4); Eosinophils % 3.9 % (0.1-12.0); Hematocrit 47.5 % (42.0-52.0); Hemoglobin 16.3 g/dL (14.1-18.0); Lymphocytes # 1.2 K/mm3 (0.7-4.5); Lymphocytes % 11.6 % (10-50); Mean Corpuscular HGB Conc 34.4 g/dL (31.8-35.4); Mean Corpuscular Hemoglobin 28.8 pg (27.0-31.2); Mean Corpuscular Volume 83.6 fl (80-94); Mean Platelet Volume 7.6 fl (7.4-10.4); Monocytes # 0.7 K/mm3 (0.1-1.0); Monocytes % 6.6 % (1.7-9.3); Neutrophils # 8.2 K/mm3 (1.8-7.8); Neutrophils % 77.1 % (37.0-80.0); Platelet Count 352 K/mm3 (142-424); Red Blood Count 5.68 M/mm3 (4.60-6.20); Red Cell Distribution Width 12.5 % (11.5-17.5); White Blood Count 10.6 K/mm3 (4.8-10.8)
[2023-02-11 13:20] LABS: Alanine Aminotransferase 42 U/L (12-78); Albumin Level 4.9 g/dl (3.5-5.0); Alkaline Phosphatase 103 U/L (38-126); Anion Gap 18.3 mEq/L (5-15); Aspartate Amino Transferase 34 U/L (17-59); Bilirubin,Indirect 0.8 mg/dL (0.0-0.9); Bilirubin,Total 0.8 mg/dl (0.2-1.3); Bilirubin,Unconjugated 0.8 mg/dL (0.0-1.1); Blood Urea Nitrogen 28 mg/dl (9-20); Calcium 9.8 mg/dl (8.4-10.2); Carbon Dioxide 28 mmol/L (22.0-30.0); Chloride 98 mmol/L (98-107); Chol/HDL Ratio 6.4 (1-3.5); Cholesterol 199 mg/dl (140-200); Estimated Glomerular Filt Rate 44 ml/min (>60); GFR (African American) 53 ML/MIN (>60); Glucose 152 mg/dl (74-100); HDL Cholesterol 31 mg/dl (40-60); Potassium 4.3 mmoL/L (3.5-5.1); Sodium 140 mmol/L (136-145); Total Protein,Serum 7.8 g/dl (6.3-8.2)
[2023-02-11 13:24] LABS: Triglycerides 468 mg/dl (30-150)
[2023-02-11 13:32] LABS: Direct LDL Cholesterol 64.92 mg/dL (100-129)
== END ==
PROVIDERS: PCP Internal Medicine Adolescent Medicine; Visit Provider Family Medicine
DX: I48.0 Paroxysmal atrial fibrillation (principal); I11.9 Hypertensive heart disease without heart failure; E11.9 Type 2 diabetes mellitus without complications; E78.2 Mixed hyperlipidemia; I63.9 Cerebral infarction, unspecified; Z79.84 Long term (current) use of oral hypoglycemic drugs
CPT/HCPCS: 36415; 80048; 80061; 80076; 85025

== ENCOUNTER → 2023-03-23 06:13 | Outpatient (CLI) | payer OTHER, SELFPAY ==
--- NOTE | 2023-03-23 | CA_ITS ---
APPROVED REPORT Exam: Exercise Treadmill Technologist: Samantha Borrero, Ht: 5 ft 4 in Wt: 72 lbs BSA: 1.27 m2 HR: 64 bpm BP: 136/87 mmHg Rhythm: NSR Medical History Medical History: HTN, Hyperlipidemia, Diabetic ??? Noninsulin, Smoking Medications: Amlodipine,,,,, Aspirin,,,,, Trazadone,,,,, Atorvastatin,,,,, Glimepiride,,,,, Ticagrelor,,,,, Farxiga,,,,, Januvia,,,,, Hydrochlorothazide,,,,, GaVIlyte-G,,,,, Allergies: No known drug allergies Cardiac Risk Factors: HTN, Hyperlipidemia, Diabetes (non-insulin), FHX of CAD, Smoking Stress Test Details Test: Karley HR Resting HR: 65 bpm Max Heart Rate (APMHR): 156 bpm Max HR Achieved: 151 bpm Target HR (85% APMHR): 133 bpm % of APMHR: 97 Recovery HR: 123 bpm HR response to stress: Normal HR response to stress BP Resting BP: 136.0/87 mmHg Max BP: 188/78 mmHg Recovery BP: 136.0/91.0 mmHg BP response to stress: Normal blood pressure response to stress. ECG Resting ECG: NSR,FIRDT DEGREE AVB,RIGHTWARD AXIS, POSSIBLE OLD ANTERIOR MT, T-WAVE CHANGES IN INFERIOR LEADS Stress ECG: NO CHANGE Arrhythmia: PVCs Recovery ECG: NO CHANGE Recovery Arrhythmia: PVCs Clinical Exercise duration: 07:20 min Highest Stage Achieved: Exercise capacity: 10.1 METs Overall Exercise Capacity for Age: Average Stress ECG Conclusion PATIENT EXERCISED 7:20 ON KARLEY PROTOCOL. HE ACHIEVED A TOTAL OF 10.1 METS. HE HAS AN AVERAGE EXERCISE CAPACITY COMPARED TO AGE AND SEX MATCHED PEERS. HE HAS A NORMAL HR AND BP RESPONSE TO EXErCISE. MAX HEART RATE 146 BPM WHICH IS 94% OF PM FOR AGE. MAX BLOOD PRESSURE 188/78. METS = 10.1. TEST STOPPED DUE TO SOA. NO CP. OCCASIONAL PVC. ONE VENTRICULAR COUPLET. CONCLUSION: NORMAL ST RESPONSE TO EXERCISE. NORMAL GXT. MYOVIEW IMAGES REPORTED SEPARATELY. Test Summary REST . . . . . . . Standing REST 04:27 0.0 0.0 65 . 136/ 87 . . Stage 1 01:00 10.0 1.7 82 . . . . Stage 1 02:00 10.0 1.7 93 . . . . Stage 1 03:00 10.0 1.7 95 . 180/ 80 . . Stage 2 01:00 12.0 2.5 107 . . . . Stage 2 02:00 12.0 2.5 114 . . . . Stage 2 03:00 12.0 2.5 124 . 188/ 78 . . Stage 3 01:00 14.0 3.4 149 . . . . Stage 3 01:20 14.0 3.4 145 . . . Stop exercise at 07:20 RECOVERY 01:00 0.0 0.0 124 . . . . RECOVERY 02:00 0.0 0.0 104 . . . . RECOVERY 03:00 0.0 0.0 95 . 136/ 91 . . RECOVERY 04:00 0.0 0.0 90 . 157/ 85 . . RECOVERY 05:00 0.0 0.0 90 . 157/ 85 . . RECOVERY 06:00 0.0 0.0 85 . 165/ 78 . . RECOVERY 06:44 0.0 0.0 87 . 133/ 73 . . Electronically signed by : Moni Fuentes, 03/26/2023 14:32:13
--- NOTE | 2023-03-23 06:16 | NM_ITS ---
APPROVED REPORT Exam: Nuclear Stress Test Indication: diabets..high cholesterol..family hx..fatigue..chest pain..soa Patient Location: Outpatient Stress Tech: Samantha Borrero [place] Tech:Odilia Goins ARRYaz RT(R)(N) Ht: 6 ft 0 in Wt: 235 lbs HR: 65 bpm BP: 136/87 mmHg BSA: 2.28 m2 Rhythm: NSR TID: 0.91 History: diabets..high cholesterol..family hx..fatigue..chest pain..soa Procedure: Patient exercised on Logan protocol 7:20 minutes and sec, resting heart rate 65 bpm, resting blood pressure 136/87 mmHg, with exercise maximum heart rate achived was 151 bpm which is 97 % of the maximum predicted heart rate and blood pressure was 188/78 mmHg. Test was stopped due to fatigue. Patient denied any complaint of chest pain. Patient has an average exercise capacity, achieved 10.1 METs of workload on treadmill, the blood pressure response to exercise was normal. Cardiac Stress and Resting SPECT Images: Cardiac Stress and Resting SPECT images were obtained using technetium 99m Myoview 30.9 mCi stress and 9.90 mCi at rest. Resting and stress imaging in supine position demonstrate a medium-sized, mild, fixed perfusion defect in the inferior LV wall. This is no longer visualized with prone stress imaging. Findings are suggestive of diaphragmatic attenuation. Gated imaging demonstrates normal global and regional LV systolic function. LVEF is calculated at 68%. Conclusion: Resting and stress imaging in supine position demonstrate a medium-sized, mild, fixed perfusion defect in the inferior LV wall. This is no longer visualized with prone stress imaging. Findings are suggestive of diaphragmatic attenuation. No definite evidence of reversible ischemia. Gated imaging demonstrates normal global and regional LV systolic function. LVEF is calculated at 68%. Electronically signed by : Moni Fuentes, 03/26/2023 14:35:40
== END ==
PROVIDERS: PCP Internal Medicine Adolescent Medicine; Visit Provider Family Medicine
DX: I25.10 Atherosclerotic heart disease of native coronary artery without angina pectoris (principal); I48.0 Paroxysmal atrial fibrillation; I10 Essential (primary) hypertension; E78.2 Mixed hyperlipidemia; N28.9 Disorder of kidney and ureter, unspecified; E11.9 Type 2 diabetes mellitus without complications; Z79.84 Long term (current) use of oral hypoglycemic drugs
CPT/HCPCS: 78452; 93017; A9502

== ENCOUNTER 2024-03-02 12:09 | Outpatient (CLI) | payer MEDICARE, OTHER, SELFPAY ==
--- NOTE | 2024-03-02 | CA_ITS ---
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, cannot R/O old ant AK Medical History Medications: Amlodipine,,,,, Lisinopril,,,,, Aspirin,,,,, Trazadone,,,,, Atorvastatin,,,,, Glimepiride,,,,, HCTZ,,,,, Farxiga,,,,, Januvia,,,,, BRILINTA,,,,, Cardiac Risk Factors: HTN, Hyperlipidemia, Diabetes (insulin), FHX of CAD, Smoking Stress Test Details Test: Beck HR Resting HR: 63 bpm Max Heart Rate (APMHR): 156 bpm Max HR Achieved: 146 bpm Target HR (85% APMHR): 133 bpm % of APMHR: 94 Recovery HR: 120 bpm HR response to stress: Normal HR response to stress BP Resting BP: 187.0/103.0 mmHg Max BP: 245.0/110.0 mmHg Recovery BP: 245.0/110.0 mmHg BP response to stress: Abnormal hypertensive response to stress. 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 Pt experinced SOA and mild chest pressure. Ectopy: Occasional PAC and PVC. One ventricular couplet. ST changes: 0.[address] depression Conclusion: Average exercise capacity. No significant EKG changes suggestive of ischemia at peak stress. Hypertensive response to exercise. Myoview images in process. Test Summary REST . . . . . . . Standing REST . . . . . . . Sitting REST 05:39 0.0 0.0 63 . 187/103 . . Stage 1 01:00 10.0 1.7 81 . . . . Stage 1 02:00 10.0 1.7 97 . . . . Stage 1 03:00 10.0 1.7 101 . 215/100 . . Stage 2 01:00 12.0 2.5 109 . . . . Stage 2 02:00 12.0 2.5 120 . 236/ 98 . . Stage 2 . . . . . . . Stage held Stage 2 03:00 12.0 2.5 132 . 236/ 98 . . Stage 2 . . . . . . . Stage resumed Stage 2 03:46 12.0 2.5 138 . 236/ 98 . Stop exercise at 06:46 RECOVERY 01:00 0.0 0.0 120 . . . . RECOVERY 02:00 0.0 0.0 93 . . . . RECOVERY 03:00 0.0 0.0 83 . 245/110 . . RECOVERY 04:00 0.0 0.0 79 . 225/112 . . RECOVERY 05:00 0.0 0.0 80 . 225/112 . . RECOVERY 06:00 0.0 0.0 80 . 225/112 . . RECOVERY 07:00 0.0 0.0 79 . 204/119 . . RECOVERY 08:00 0.0 0.0 73 . 195/110 . . RECOVERY 09:00 0.0 0.0 73 . 195/110 . . RECOVERY 10:00 0.0 0.0 74 . 195/110 . . RECOVERY 10:36 0.0 0.0 79 . 189/109 . . Electronically signed by : Moni Fuentes MD 03/02/2024 22:02:11
--- NOTE | 2024-03-02 12:13 | XR_ITS ---
FINAL REPORT CLINICAL HISTORY: chest pain COMPARISON: 11/11/2020 FINDINGS: Two views of the chest were obtained. The heart size and pulmonary vascularity are within normal limits. The mediastinum is normal. No acute pulmonary abnormality is identified. There is no pneumothorax. The bony thorax is intact. IMPRESSION: No active cardiopulmonary disease. Reviewed, Interpreted and Dictated by Luis Pathak III, MD Transcribed by Karey Washington Authenticated and [facility]
--- NOTE | 2024-03-02 12:17 | NM_ITS ---
APPROVED REPORT Exam: Nuclear Stress Test Indication: CAD, 5 STENTS, H/O [place], HTN, DM, HYPERLIPIDEMIA, FM HX, C.P., SOB, SYNCOPE, FATIGUE, ABLATION Patient Location: Outpatient Stress Tech: Samantha Borrero [place] Tech:Gabriella KAYLA Estevez RT (R)(N)(M) Ht: 6 ft 1 in Wt: 234 lbs HR: 60 bpm BP: 187/103 mmHg BSA: 2.30 m2 TID: 1.08 BMI: 30.8 History: CAD, 5 STENTS, H/O [place], HTN, DM, HYPERLIPIDEMIA, FM HX, C.P., SOB, SYNCOPE, FATIGUE, ABLATION Procedure: Patient exercised on Logan protocol 6:46 minutes and sec, resting heart rate 60 bpm, resting blood pressure 187/103 mmHg, with exercise maximum heart rate achived was 146 bpm which is 90 % of the maximum predicted heart rate and blood pressure was 236/98 mmHg. Test was stopped due to FATIGUE. Patient has exercise capacity, achieved 7.0 METs of workload on treadmill, the blood pressure response to exercise was . Cardiac Stress and Resting SPECT Images: Cardiac Stress and Resting SPECT images were obtained using technetium 99m Myoview 31.9 mCi stress and 10.79 mCi at rest. Resting and stress imaging in supine and prone positions demonstrate no evidence of fixed or reversible perfusion defects. Gated imaging demonstrates normal global and regional LV systolic function. LVEF is calculated at 54%. Conclusion: no evidence of fixed or reversible perfusion defects. Gated imaging demonstrates normal global and regional LV systolic function. LVEF is calculated at 54%. Of note, the patient had a hypertensive BP response to exercise. BP control is recommended. Electronically signed by : Moni Fuentes MD 03/04/2024 12:32:28
[2024-03-02] MEDS: ISOTOPE MYOVIEW (PER STUDY) 1 DOSE IV (15:11)
[2024-03-02] MEDS: SODIUM CHLORIDE 0.9% 10ML SYR (RAD ONLY) 10 ML IV ×2 (15:11)
== END 2024-03-02 23:59 | disposition home or self-care (01) ==
LOC: RAD 12:09
PROVIDERS: PCP Internal Medicine Adolescent Medicine; Visit Provider Internal Medicine Adolescent Medicine
DX: I25.10 Atherosclerotic heart disease of native coronary artery without angina pectoris (principal); R07.89 Other chest pain; Z87.891 Personal history of nicotine dependence
CPT/HCPCS: 71046; 78452; 93017; 93018; A9502

== ENCOUNTER 2024-08-23 14:52 | Outpatient (POV) | payer MEDICARE, SELFPAY | END 2024-08-23 23:59 | disposition home or self-care (01) | LOC: SC 14:53 | PROVIDERS: Visit Provider Specialist/Technologist | DX: Z00.00 Encounter for general adult medical examination without abnormal findings (principal) ==

== ENCOUNTER 2024-09-19 13:31 | Outpatient (CLI) | payer MEDICARE, SELFPAY | END 2024-09-19 23:59 | disposition home or self-care (01) | LOC: LAB.DROPOF 13:32 | PROVIDERS: PCP Nurse Practitioner; Visit Provider Nurse Practitioner | DX: H66.92 Otitis media, unspecified, left ear (principal) | CPT/HCPCS: 87070; 87077; 87186 ==

== ENCOUNTER 2024-09-20 14:18 | Emergency (ER) | payer MEDICARE, SELFPAY ==
[2024-09-20] VITALS (11 sets, daily range): BP systolic 132–179; BP diastolic 82–110; PULSE 68–92; RESP 13–27; TEMP 36.6–36.7; O2SAT 93–99; BMI 33.9
--- NOTE | 2024-09-20 14:20 | ECG_ITS ---
APPROVED REPORT Exam: Resting ECG HR:90 bpm ECG Measurements Heart Rate 90 AXES OK 236 P -7 QRSd 96 QRS -46 QT 342 T 18 QTc 390 Conclusion SINUS RHYTHM WITH FIRST DEGREE AV BLOCK INDETERMINATE AXIS INCOMPLETE RIGHT BUNDLE BRANCH BLOCK [90+ ms QRS DURATION, TERMINAL R IN V1/V2, 40+ ms S IN I/aVL/V4/V5/V6] POSSIBLE INFERIOR MYOCARDIAL INFARCTION , PROBABLY OLD [30 ms Q WAVE IN II/aVF] ABNORMAL ECG UNCONFIRMED REPORT Electronically signed by : NATALIE PIERRE, 09/23/2024 06:58:53
--- NOTE | 2024-09-20 14:36 | XR_ITS ---
FINAL REPORT CLINICAL HISTORY: dyspnea chest pain COMPARISON: 03/02/2024 FINDINGS: SINGLE VIEW CHEST Lordotic positioning was obtained. The heart is normal in size. The mediastinum is unremarkable. There is mild bibasilar atelectasis. There is no pneumothorax. IMPRESSION: Mild bibasilar atelectasis. Reviewed, Interpreted and Dictated by Nate Mosqueda MD Transcribed by Jessie Kinsey Authenticated and [facility]
--- NOTE | 2024-09-20 14:40 | [facility].EDCP ---
Discharge Plan Disposition Patient Disposition: Home, Self-Care Condition: Good Prescriptions Prescriptions: No Action aspirin [Lo-Dose Aspirin] 81 mg tablet,delayed release (DR/EC) 81 mg PO DAILY glimepiride 4 mg tablet 4 mg PO DAILY rosuvastatin 40 mg tablet 40 mg PO DAILY losartan 100 mg tablet 100 mg PO DAILY lisinopril 5 mg tablet 5 mg PO DAILY Patient Comments: TAKE ONE TABLET BY MOUTH EVERY DAY escitalopram oxalate 10 mg tablet 10 mg PO DAILY carvedilol [Coreg] 3.125 mg tablet 3.125 mg PO BID Qty: 180 1RF Rx Instructions: must administer with a meal/food trazodone 150 MG tablet 150 mg PO HS hydrochlorothiazide 25 mg tablet 25 mg PO DAILY Januvia 100 mg tablet 100 mg PO DAILYDM dapagliflozin propanediol [Farxiga] 10 mg tablet 10 mg PO DAILY Referrals Follow up/Referrals: Mendy Ortega MD [Physician] - See instructions Manuel Lawler MD [Primary Care Provider] - See instructions Sylvester Fuentes MD [Staff Physician] - See instructions Activity Restrictions/Add. Instructions Additional Instructions/Restrictions: You were evaluated in the emergency department today. Please follow-up closely with cardiology. At this time, your workup is reassuring but outpatient evaluation is very important. Return to the emergency department for new or worsening symptoms. Clinical Impressions Clinical Impression: Atypical chest pain Instructions Patient Instructions: DI for Atypical Chest Pain Print Language Print Language: Romansh Discharge ED Provider: Neetu Arzate HPI <J Bhargav Coyle MD - Last Filed: 09/20/24 14:44> General Chief Complaint: Chest Pain Stated Complaint: CP Time Seen by Provider: 09/20/24 14:29 Mode of Arrival: Ambulatory Source of Information: Patient Limitations: No Limitations Description of Symptoms (Recalled from ER Triage Doc. by RN): Reports chest pain that started approx 2 days ago. States he also has had a worsening cough. Reports taking 81mg of ASA this am. History of Present Illness HPI narrative: Patient is a 64-year-old male with a history of coronary disease presents today with chest pain. Presented to the ER and a half ago and had 5 stents that were placed according to the patient. States has been compliant with his medications which include aspirin and is taking that today. Patient states that he has had intermittent chest pain that is on the anterior chest going from one shoulder to the next on the anterior surface symptoms lasting 15 minutes most recently about an hour and a half prior to arrival today. Does not definitively state that it is exertional. Does have some dyspnea associated with it but is essentially asymptomatic at this point. Related Data Home Medications ?Medication ?Instructions ?Recorded ?Confirmed aspirin 81 mg tablet,delayed 81 mg PO DAILY heart health 08/27/19 09/20/24 release (Lo-Dose Aspirin) trazodone 150 mg tablet 150 mg PO HS Sleep 11/12/20 09/20/24 dapagliflozin propanediol 10 mg 10 mg PO DAILY Diabetes/heart 02/04/23 09/20/24 tablet (Farxiga) failure hydrochlorothiazide 25 mg tablet 25 mg PO DAILY High blood pressure 02/04/23 09/20/24 sitagliptin phosphate 100 mg 100 mg PO DAILYDM Diabetes 02/04/23 09/20/24 tablet (Januvia) lisinopril 5 mg tablet 5 mg PO DAILY 04/04/23 09/20/24 glimepiride 4 mg tablet 4 mg PO DAILY 07/02/24 09/20/24 losartan 100 mg tablet 100 mg PO DAILY 07/02/24 09/20/24 rosuvastatin 40 mg tablet 40 mg PO DAILY 07/02/24 09/20/24 escitalopram oxalate 10 mg tablet 10 mg PO DAILY 09/19/24 09/20/24 Previous Rx's ?Medication ?Instructions ?Recorded carvedilol 3.125 mg tablet (Coreg) 3.125 mg PO BID #180 tabs 12/29/23 Allergies Allergy/AdvReac Type Severity Reaction Status Date / Time No Known Allergies Allergy Verified 09/19/24 10:05 [facility] <Jonathan Coyle MD - Last Filed: 09/20/24 14:44> [facility] Disclaimer: The information contained in this section may have been updated after the patient was seen, as this information can be updated by other users. Medical History (Updated 09/20/24 @ 14:38 by Jonathan Coyle MD) Otitis media of left ear Hearing Loss Otitis externa Hearing difficulty of left ear Tinnitus, left ear Otalgia, left ear Abnormal electrocardiogram [ECG] [EKG] Angina pectoris Non-STEMI (non-ST elevated myocardial infarction) Paroxysmal atrial fibrillation History of left heart catheterization (LHC) Insomnia disorder Diabetes mellitus, type 2 Hyperlipidemia Hypertension Gout Diabetes mellitus Surgical History H/O heart artery stent History of cardiac cath History of lung biopsy History of cardiac radiofrequency ablation (RFA) Family History Other Diabetes Family history of cancer Family history of coronary artery disease Family history of myocardial infarction Social History Smoking Status: Never smoker alcohol intake: current alcohol intake frequency: holidays/special occasions only substance use type: denies use current occupational status: employed Travel in the last 8 weeks: None household members: spouse housing: house marital status: number of children: 3 caffeine: No jina/church: Rastafarian special jina needs: No do you feel safe at home: Yes victim of physical abuse: No victim of emotional abuse: No victim of sexual abuse: No would you like helpful sources: No Have you lived/traveled outside [place] in past 30 days?: No Contact w/someone who lives/traveled outside US past 30 days?: No Exposure to someone with infectious disease in past 14 days?: No Do you have a fever (greater than 100.4 F or 38 C)?: No Have you tested positive for COVID-19: No Exposed to someone with COVID-19 in past 14 days?: No Do you have a sore throat?: No Do you have a cough?: No Do you have any weakness?: No Do you have any diarrhea?: No Are you experiencing any unusual bleeding?: No Do you have any muscle aches/pain?: No Do you have any abdominal pain?: No Are you experiencing loss of taste or smell?: No Other Medical History Have you received the Flu Vaccine for this season: No Have you received the Pneumonia Vaccine: No <Jonathan Coyle MD - Last Filed: 09/20/24 14:44> ROS Obtained: Yes All systems reviewed & no additional complaints except as documented Physical Exam <Jonathan Coyle MD - Last Filed: 09/20/24 14:44> General General appearance: alert and in no apparent distress Respiratory Respiratory exam: Present normal lung sounds bilaterally; Absent respiratory distress Cardiovascular Cardiovascular exam: Present regular rate and normal rhythm Abdominal Exam Abdominal exam: Present soft; Absent distention or tenderness Neurological Exam Neurological exam: Present alert, oriented X3 and normal gait; Absent CN II-XII intact or motor sensory deficit HEART Score <Jonathan Coyle MD - Last Filed: 09/20/24 14:44> HEART Score HEART Score assessment performed?: Yes History (anamnesis): Slightly suspicious ECG: Non-specific disturbance Age: 45-65 years Risk factors: Atherosclerosis history Troponin: </= normal limit HEART Score: 4 <Neetu Arzate DO - Last Filed: 09/20/24 19:22> HEART Score HEART Score: 4 Critical Care <Jonathan Coyle MD - Last Filed: 09/20/24 14:44> Critical Care Time Critical Care Time: No Medical Decision Making <Jonathan Coyle MD - Last Filed: 09/20/24 14:44> Colt Inquiry Pt receiving controlled substance: No Vital Signs Vital Signs: 09/20/24 14:22 09/20/24 14:24 09/20/24 14:30 Temperature 98.0 F Temperature Source Oral Pulse Rate 92 H 79 Pulse Rate [Radial] 89 Respiratory Rate 22 16 17 Blood Pressure 132/110 H 160/104 H Blood Pressure [Right Arm] 179/104 H Blood Pressure Mean [Right Arm] 129 Blood Pressure Source [Right Arm] Automatic Cuff Blood Pressure Position [Right Arm] Sitting 02 Sat by Pulse Oximetry 95 99 95 Oxygen Delivery Method Room Air Room Air Room Air 09/20/24 15:00 09/20/24 15:30 09/20/24 16:00 Temperature Temperature Source Pulse Rate 83 78 79 Pulse Rate [Radial] Respiratory Rate 26 H 27 H 24 Blood Pressure 164/95 H 161/87 H 154/98 H Blood Pressure [Right Arm] Blood Pressure Mean [Right Arm] Blood Pressure Source [Right Arm] Blood Pressure Position [Right Arm] 02 Sat by Pulse Oximetry 93 L 94 L 95 Oxygen Delivery Method Room Air Room Air Room Air 09/20/24 16:30 09/20/24 17:00 09/20/24 17:30 Temperature Temperature Source Pulse Rate 71 71 71 Pulse Rate [Radial] Respiratory Rate 21 23 24 Blood Pressure 158/82 H 164/87 H 165/93 H Blood Pressure [Right Arm] Blood Pressure Mean [Right Arm] Blood Pressure Source [Right Arm] Blood Pressure Position [Right Arm] 02 Sat by Pulse Oximetry 96 96 95 Oxygen Delivery Method Room Air Room Air Room Air 09/20/24 18:00 09/20/24 18:45 Temperature 97.9 F Temperature Source Pulse Rate 74 68 Pulse Rate [Radial] Respiratory Rate 13 20 Blood Pressure 137/87 147/89 H Blood Pressure [Right Arm] Blood Pressure Mean [Right Arm] Blood Pressure Source [Right Arm] Blood Pressure Position [Right Arm] 02 Sat by Pulse Oximetry 94 L Oxygen Delivery Method Room Air Room Air Lab Data Labs: Lab Results 09/20/24 14:25: WBC 7.8, RBC 4.56 L, Hgb 13.6 L, Hct 37.9 L, MCV 83.1, MCH 29.8, MCHC 35.9 H, RDW 11.2 L, Plt Count 199, MPV 9.5, Neut % (Auto) 77.4, Lymph % (Auto) 8.2 L, Blanco % (Auto) 11.5 H, Eos % (Auto) 1.9, Baso % (Auto) 0.5, Neut # (Auto) 6.0, Lymph # (Auto) 0.6 L, Blanco # (Auto) 0.9, Eos # (Auto) 0.2, Baso # (Auto) 0.0, D-Dimer 0.58 H, Sodium 134 L, Potassium 4.4, Chloride 99, Carbon Dioxide 26, Anion Gap 13.4, BUN 20, Creatinine 1.50 H, Estimated Creat Clear 79, Estimated GFR 47 L, Est GFR ( Amer) 57 L, Glucose 287 H, Calcium 9.2, Total Bilirubin 0.5, AST 38, ALT 40, Alkaline Phosphatase 87, Troponin I < 0.01, Total Protein 6.7, Albumin 4.1, Globulin 2.6, Albumin/Globulin Ratio 1.6, Lipase 144, HCV Ab CRISTAL w/Rflx PCR Qn Negative, HIV Ag/Ab Combo Qual Negative 09/20/24 16:44: SARS-CoV-2 (PCR) Not detected, Influenza A Untype (PCR) Not detected, Influenza Type B (PCR) Not detected 09/20/24 17:27: Troponin I < 0.01 09/20/24 14:25 09/20/24 14:25 Response Orders (Tests/Meds): ED MEDICATIONS Discontinued Medications Generic Name Dose Route Start Last Admin Trade Name Freq PRN Reason Stop Dose Admin Acetaminophen 1,000 mg 09/20/24 16:36 09/20/24 16:40 Acetaminophen 500mg Tab PO 09/20/24 16:37 1,000 mg ONCE ONE Administration ORDERS Category Date Time Status CXR --portable [XR chest portable] Stat Exams 09/20/24 14:36 Completed CBC w/Auto Diff [Complete Blood Count Auto Diff] Stat Lab 09/20/24 14:25 Completed CMP [Comprehensive Metabolic Panel] Stat Lab 09/20/24 14:25 Completed D-Dimer Stat Lab 09/20/24 14:25 Completed HIV Combo Stat Lab 09/20/24 14:25 Completed Hepatitis C Ab Qual. W/ RFX Stat Lab 09/20/24 14:25 Completed Lipase Stat Lab 09/20/24 14:25 Completed Rapid PCR Covid and Flu A/B Stat Lab 09/20/24 16:44 Completed Trop I [Troponin I] Stat Lab 09/20/24 14:25 Completed Troponin I Q3H Lab 09/20/24 17:27 Completed ECG Data Tracing #1: Attestation: I reviewed this ECG and interpreted as documented below: ECG Narrative: Ventricular rate of 90 no acute ischemic changes noted indeterminate axis incomplete right bundle branch block questionable Q waves in the inferior lead possibly representing an old ID MDM Narrative Medical Decision Narrative: 64-year-old with a history of coronary disease presents today with intermittent chest discomfort essentially asymptomatic at this point. EKG is not ischemic. Given the fact that he has had intermittent symptoms we will get serial troponins. He will be placed in ED observation. Looks very well clinically. Additional things in the differential would be aortic dissection pulmonary embolism etc. Given his age cannot use pulmonary embolism rule out criteria and will obtain a D-dimer and utilize years criteria. Care will be transitioned to Dr. Neetu Arzate for final evaluation and management of this patient. <Neetu Arzate, DO - Last Filed: 09/20/24 19:22> Vital Signs Vital Signs: 09/20/24 14:22 09/20/24 14:24 09/20/24 14:30 Temperature 98.0 F Temperature Source Oral Pulse Rate 92 H 79 Pulse Rate [Radial] 89 Respiratory Rate 22 16 17 Blood Pressure 132/110 H 160/104 H Blood Pressure [Right Arm] 179/104 H Blood Pressure Mean [Right Arm] 129 Blood Pressure Source [Right Arm] Automatic Cuff Blood Pressure Position [Right Arm] Sitting 02 Sat by Pulse Oximetry 95 99 95 Oxygen Delivery Method Room Air Room Air Room Air 09/20/24 15:00 09/20/24 15:30 09/20/24 16:00 Temperature Temperature Source Pulse Rate 83 78 79 Pulse Rate [Radial] Respiratory Rate 26 H 27 H 24 Blood Pressure 164/95 H 161/87 H 154/98 H Blood Pressure [Right Arm] Blood Pressure Mean [Right Arm] Blood Pressure Source [Right Arm] Blood Pressure Position [Right Arm] 02 Sat by Pulse Oximetry 93 L 94 L 95 Oxygen Delivery Method Room Air Room Air Room Air 09/20/24 16:30 09/20/24 17:00 09/20/24 17:30 Temperature Temperature Source Pulse Rate 71 71 71 Pulse Rate [Radial] Respiratory Rate 21 23 24 Blood Pressure 158/82 H 164/87 H 165/93 H Blood Pressure [Right Arm] Blood Pressure Mean [Right Arm] Blood Pressure Source [Right Arm] Blood Pressure Position [Right Arm] 02 Sat by Pulse Oximetry 96 96 95 Oxygen Delivery Method Room Air Room Air Room Air 09/20/24 18:00 09/20/24 18:45 Temperature 97.9 F Temperature Source Pulse Rate 74 68 Pulse Rate [Radial] Respiratory Rate 13 20 Blood Pressure 137/87 147/89 H Blood Pressure [Right Arm] Blood Pressure Mean [Right Arm] Blood Pressure Source [Right Arm] Blood Pressure Position [Right Arm] 02 Sat by Pulse Oximetry 94 L Oxygen Delivery Method Room Air Room Air Lab Data Labs: Lab Results 09/20/24 14:25: WBC 7.8, RBC 4.56 L, Hgb 13.6 L, Hct 37.9 L, MCV 83.1, MCH 29.8, MCHC 35.9 H, RDW 11.2 L, Plt Count 199, MPV 9.5, Neut % (Auto) 77.4, Lymph % (Auto) 8.2 L, Blanco % (Auto) 11.5 H, Eos % (Auto) 1.9, Baso % (Auto) 0.5, Neut # (Auto) 6.0, Lymph # (Auto) 0.6 L, Blanco # (Auto) 0.9, Eos # (Auto) 0.2, Baso # (Auto) 0.0, D-Dimer 0.58 H, Sodium 134 L, Potassium 4.4, Chloride 99, Carbon Dioxide 26, Anion Gap 13.4, BUN 20, Creatinine 1.50 H, Estimated Creat Clear 79, Estimated GFR 47 L, Est GFR ( Amer) 57 L, Glucose 287 H, Calcium 9.2, Total Bilirubin 0.5, AST 38, ALT 40, Alkaline Phosphatase 87, Troponin I < 0.01, Total Protein 6.7, Albumin 4.1, Globulin 2.6, Albumin/Globulin Ratio 1.6, Lipase 144, HCV Ab CRISTAL w/Rflx PCR Qn Negative, HIV Ag/Ab Combo Qual Negative 09/20/24 16:44: SARS-CoV-2 (PCR) Not detected, Influenza A Untype (PCR) Not detected, Influenza Type B (PCR) Not detected 09/20/24 17:27: Troponin I < 0.01 Response Orders (Tests/Meds): ED MEDICATIONS Discontinued Medications Generic Name Dose Route Start Last Admin Trade Name Freq PRN Reason Stop Dose Admin Acetaminophen 1,000 mg 09/20/24 16:36 09/20/24 16:40 Acetaminophen 500mg Tab PO 09/20/24 16:37 1,000 mg ONCE ONE Administration ORDERS Category Date Time Status CXR --portable [XR chest portable] Stat Exams 09/20/24 14:36 Completed CBC w/Auto Diff [Complete Blood Count Auto Diff] Stat Lab 09/20/24 14:25 Completed CMP [Comprehensive Metabolic Panel] Stat Lab 09/20/24 14:25 Completed D-Dimer Stat Lab 09/20/24 14:25 Completed HIV Combo Stat Lab 09/20/24 14:25 Completed Hepatitis C Ab Qual. W/ RFX Stat Lab 09/20/24 14:25 Completed Lipase Stat Lab 09/20/24 14:25 Completed Rapid PCR Covid and Flu A/B Stat Lab 09/20/24 16:44 Completed Trop I [Troponin I] Stat Lab 09/20/24 14:25 Completed Troponin I Q3H Lab 09/20/24 17:27 Completed MDM Narrative Medical Decision Narrative: 64-year-old with a history of coronary disease presents today with intermittent chest discomfort essentially asymptomatic at this point. EKG is not ischemic. Given the fact that he has had intermittent symptoms we will get serial troponins. He will be placed in ED observation. Looks very well clinically. Additional things in the differential would be aortic dissection pulmonary embolism etc. Given his age cannot use pulmonary embolism rule out criteria and will obtain a D-dimer and utilize years criteria. Care will be transitioned to Dr. Neetu Arzate for final evaluation and management of this patient. DO Huey: I assumed care of the patient at 1500 at time of departure of the previous provider. On my assessment, he is lying in bed in no acute distress with no concerns or complaints. He states that he usually just gets chest tightness whenever he bends over to tie his shoes and has a really hard time doing that. He has normal vital signs on cardiac telemetry. He has no significant increased work of breathing with reassuring cardiopulmonary exam. Labs obtained are reassuring with mild anemia at 13.6. Mild hyponatremia which is nonactionable, kidney function is around his baseline. Initial troponin negative, D-dimer negative per years criteria, so I do not feel that other evaluation for PE is indicated at this time. At 1505, patient was placed in ED observation status pending second troponin to determine whether or not the patient would be appropriate for discharge versus admission. The patient was provided serial reevaluations and cardiac monitoring while awaiting ultimate disposition. On multiple subsequent reassessments, the patient is resting comfortably with no concerns or complaints. Vitals remain reassuring on cardiac telemetry. Given reassuring workup and exam, it is felt that the patient is appropriate for discharge at 1845. Instructions for close outpatient follow-up were given for further evaluation and management as well as strict return precautions. Total ED observation time was 3 hours and 40 minutes. I had a [id number] visit with the patient when providing discharge instructions. The total time involved in discharging this patient was less than 30 minutes.
[2024-09-20 14:52] LABS: Alanine Aminotransferase 40 U/L (12-78); Alkaline Phosphatase 87 U/L (38-126); Anion Gap 13.4 mEq/L (5-15); Aspartate Amino Transferase 38 U/L (17-59); Bilirubin,Total 0.5 mg/dl (0.2-1.3); Blood Urea Nitrogen 20 mg/dl (9-20); Calcium 9.2 mg/dl (8.4-10.2); Carbon Dioxide 26 mmol/L (22.0-30.0); Chloride 99 mmol/L (98-107); Creatinine Clearance Estimated 79 mL/min (50-200); Estimated Glomerular Filt Rate 47 ml/min (>60); GFR (African American) 57 ML/MIN (>60); Glucose 287 mg/dl (74-100); Lipase 144 U/L (23-300); Potassium 4.4 mmoL/L (3.5-5.1); Sodium 134 mmol/L (136-145); Total Protein,Serum 6.7 g/dl (6.3-8.2)
[2024-09-20 14:53] LABS: Basophils % 0.5 % (0.1-2.0); Eosinophils # 0.2 K/mm3 (0.0-0.4); Eosinophils % 1.9 % (0.1-12.0); Hematocrit 37.9 % (42.0-52.0); Hemoglobin 13.6 g/dL (14.1-18.0); Lymphocytes # 0.6 K/mm3 (0.7-4.5); Lymphocytes % 8.2 % (10-50); Mean Corpuscular HGB Conc 35.9 g/dL (31.8-35.4); Mean Corpuscular Hemoglobin 29.8 pg (27.0-31.2); Mean Corpuscular Volume 83.1 fl (80-94); Mean Platelet Volume 9.5 fl (7.4-10.4); Monocytes # 0.9 K/mm3 (0.1-1.0); Monocytes % 11.5 % (1.7-9.3); Neutrophils % 77.4 % (37.0-80.0); Platelet Count 199 K/mm3 (142-424); Red Blood Count 4.56 M/mm3 (4.60-6.20); Red Cell Distribution Width 11.2 % (11.5-17.5); White Blood Count 7.8 K/mm3 (4.8-10.8)
[2024-09-20 14:56] LABS: D-Dimer 0.58 ug/mL (0.0-0.5)
[2024-09-20 15:10] LABS: Troponin I < 0.01 ng/ml (0.00-0.034)
[2024-09-20 15:24] LABS: Albumin Level 4.1 g/dl (3.5-5.0); Albumin/Globulin Ratio 1.6 (1.1-1.8); Globulin 2.6 g/dL (1.3-3.2)
[2024-09-20 15:40] LABS: HIV Combo NEGATIVE (Negative)
[2024-09-20 15:48] LABS: Hepatitis C Ab Qual. W/ RFX NEGATIVE (Negative)
[2024-09-20] MEDS: ACETAMINOPHEN 500MG TAB 1000 MG PO (16:40)
[2024-09-20 16:47] LABS: Coronavirus 19, PCR Not Detected (NotDetected); Influenza A, PCR Not Detected (NotDetected); Influenza B, PCR Not Detected (NotDetected)
[2024-09-20 18:20] LABS: Troponin I < 0.01 ng/ml (0.00-0.034)
== END 2024-09-20 18:46 | disposition home or self-care (01) ==
PROVIDERS: Student in an Organized Health Care Education/Training Program; Emergency Provider Emergency Medicine; PCP Internal Medicine Adolescent Medicine
DX: R07.89 Other chest pain (principal); R07.9 Chest pain, unspecified; R05.9 Cough, unspecified
CPT/HCPCS: 71045; 80053; 83690; 84484; 85025; 85378; 86803; 87389; 87636; 93005; 99284

== ENCOUNTER 2024-09-25 09:01 | Outpatient (CLI) | payer MEDICARE, SELFPAY ==
--- NOTE | 2024-09-25 09:16 | CT_ITS ---
FINAL REPORT TECHNIQUE: Pre and postcontrast axial imaging of the chest was obtained. This study was performed with techniques to keep radiation doses as low as reasonably achievable (ALARA). Individualized dose reduction techniques using automated exposure control or adjustment of mA and/or kV according to the patient's size were employed. CLINICAL HISTORY: ATYPICAL CP/ACUTE BRONCHITIS FINDINGS: There is no axillary adenopathy. There is no hilar or mediastinal adenopathy. The heart size is normal. There is no pericardial or pleural effusion. Limited images of the upper abdomen are unremarkable. There is minimal peribronchial thickening in the perihilar regions which could be due to mild bronchitis. There is a calcified granuloma or lymph node along the left major fissure. IMPRESSION: Minimal peribronchial thickening in the perihilar regions which could be due to bronchitis. Reviewed, Interpreted and Dictated by Nate Mosqueda MD Transcribed by Ghislaine Calvo Authenticated and [facility]
[2024-09-25] MEDS: IOPAMIDOL-370 (76%);100ML BOTTLE 75 ML IV (09:48)
[2024-09-25] MEDS: SODIUM CHLORIDE 0.9% 10ML SYR (RAD ONLY) 10 ML IV (09:48)
[2024-09-25 09:54] LABS: Chloride 97 mmol/L (98-107); Potassium 4.9 mmoL/L (3.5-5.1); Sodium 133 mmol/L (136-145)
[2024-09-25 09:57] LABS: Blood Urea Nitrogen 24 mg/dl (9-20); Estimated Glomerular Filt Rate 61 ml/min (>60); GFR (African American) 74 ML/MIN (>60)
[2024-09-25 09:58] LABS: Anion Gap 15.9 mEq/L (5-15); Calcium 9.2 mg/dl (8.4-10.2); Carbon Dioxide 25 mmol/L (22.0-30.0); Glucose 348 mg/dl (74-100)
[2024-09-25 11:47] LABS: Hemoglobin A1C 10.5 % (4.0-6.0)
== END 2024-09-25 23:59 | disposition home or self-care (01) ==
LOC: RAD 09:03
PROVIDERS: Physician Assistant; PCP Internal Medicine Adolescent Medicine; Visit Provider Internal Medicine Adolescent Medicine
DX: R07.89 Other chest pain (principal); J20.9 Acute bronchitis, unspecified; I10 Essential (primary) hypertension; R73.9 Hyperglycemia, unspecified
CPT/HCPCS: 36415; 71270; 80048; 83036; Q9967

== ENCOUNTER 2024-10-05 10:06 | Outpatient (CLI) | payer MEDICARE, SELFPAY ==
[2024-10-05 11:09] LABS: Anion Gap 13.2 mEq/L (5-15); Blood Urea Nitrogen 20 mg/dl (9-20); Calcium 9.9 mg/dl (8.4-10.2); Carbon Dioxide 33 mmol/L (22.0-30.0); Chloride 95 mmol/L (98-107); Estimated Glomerular Filt Rate 55 ml/min (>60); GFR (African American) 67 ML/MIN (>60); Glucose 265 mg/dl (74-100); Potassium 5.2 mmoL/L (3.5-5.1); Sodium 136 mmol/L (136-145)
== END 2024-10-05 23:59 | disposition home or self-care (01) ==
LOC: LAB 10:07
PROVIDERS: PCP Internal Medicine Adolescent Medicine; Visit Provider Physician Assistant
DX: N28.9 Disorder of kidney and ureter, unspecified (principal); I10 Essential (primary) hypertension
CPT/HCPCS: 36415; 80048

== ENCOUNTER 2024-10-12 08:13 | Day surgery (SDC) | payer MEDICARE, SELFPAY ==
[2024-10-12] VITALS (14 sets, daily range): BP systolic 106–137; BP diastolic 59–91; PULSE 53–62; RESP 16–22; TEMP 36.9; O2SAT 92–99; BMI 33.5
--- NOTE | 2024-10-12 07:06 | IR_ITS ---
APPROVED REPORT Patient Location: Outpatient [facility] [employer] Helper: KAYLA Christian RT (R) PROCEDURES Left heart catheterization Left ventriculogram Selective coronary angiogram Drug-eluting stent deployment to the proximal ID INDICATION Coronary artery disease, Accelerated angina pectoris Informed consent was obtained prior to the procedure. COMPLICATIONS NONE Estimated Blood Loss: LESS THAN 10 ML TECHNIQUE One percent lidocaine used to anesthetize the right anterior aspect of the wrist. The right radial artery was accessed via the Seldinger technique. A 6 Fijian sheath was placed in the right radial artery. 2.5 mg of Verapamil, 800 mcg of nitroglycerin, 1mg Lidocaine and 5000 U Heparin were given through the arterial sheath. The 6 Fijian JL 3 r was also used to perform left heart catheterization, left ventriculogram and selective coronary angiogram. At the end the diagnostic angiogram therapeutic heparin was administered giving a therapeutic ACT and the guide catheter was placed in left main artery followed by Choice PT export wire placed on the LAD. A 3 mm x 38 mm [place] frontier stent was placed in the proximal LAD and deployed at 20 rakesh. A 3.5 x 12 mm noncompliant balloon was placed proximally and deployed at 20 and then 24 rakesh to post dilate. MANOLO-3 flow was present before and after the procedure. At the end the procedure the apparatus was removed the sheath was removed and hemostasis was achieved using TR banding patient was transferred to the postop putting in stable condition ANGIOGRAPHIC RESULTS The left main artery Normal The left anterior descending artery Has a proximal concentric 70% stenosis with additional 50% stenosis immediately proximal to the large first diagonal artery there is additional 30% mid vessel stenosis The circumflex artery Is nondominant with mild 10% calcified luminal regularities The right coronary artery Is dominant and has mid vessel 30% stenosis with a distal stent which is widely patent with minimal in-stent restenosis. Distal to the stent there is an additional 70 to 80% stenosis which is a few millimeters proximal to the posterior descending and posterior lateral branch The BLANCA ventriculogram reveals Normal 65 to 70% The left ventricular end-diastolic pressure 20 mmHg IMPRESSION Severe proximal LAD disease Successful stent to the proximal LAD severe disease reduced to 0% with 1 drug-eluting stent Persistent disease in the distal dominant right coronary as described above Hyperdynamic ventricle Mildly elevated LVEDP PLAN 1. Plavix and aspirin 2. Maximize antianginal medications 3. LDL less than 55 to be achieved with high intensity statin 4. Patient has a persistent blockage of the distal right coronary artery. Because of the renal insufficiency it was decided to leave this vessel alone for the time being. If the angina is resolved with stent in the proximal LAD I would continue treating this medically. If patient continues to have angina he will be brought back and undergo stenting of the posterior descending artery 5. Cardiac rehabilitation Electronically signed by : Efrem Partida MD 10/12/2024 10:58:57
[2024-10-12 08:47] LABS: Basophils % 0.4 % (0.1-2.0); Eosinophils # 0.4 K/mm3 (0.0-0.4); Eosinophils % 4.3 % (0.1-12.0); Hematocrit 40.2 % (42.0-52.0); Hemoglobin 14.1 g/dL (14.1-18.0); Lymphocytes # 1.6 K/mm3 (0.7-4.5); Lymphocytes % 18.3 % (10-50); Mean Corpuscular HGB Conc 35.1 g/dL (31.8-35.4); Mean Corpuscular Hemoglobin 29.3 pg (27.0-31.2); Mean Corpuscular Volume 83.4 fl (80-94); Mean Platelet Volume 9.6 fl (7.4-10.4); Monocytes # 0.9 K/mm3 (0.1-1.0); Monocytes % 9.9 % (1.7-9.3); Neutrophils % 66.8 % (37.0-80.0); Platelet Count 222 K/mm3 (142-424); Red Blood Count 4.82 M/mm3 (4.60-6.20); Red Cell Distribution Width 11.2 % (11.5-17.5); White Blood Count 8.9 K/mm3 (4.8-10.8)
[2024-10-12 08:53] LABS: Chloride 97 mmol/L (98-107)
[2024-10-12 08:54] LABS: Potassium 4.1 mmoL/L (3.5-5.1); Sodium 135 mmol/L (136-145)
[2024-10-12 08:57] LABS: Anion Gap 12.1 mEq/L (5-15); Blood Urea Nitrogen 26 mg/dl (9-20); Calcium 9.2 mg/dl (8.4-10.2); Carbon Dioxide 30 mmol/L (22.0-30.0); Creatinine Clearance Estimated 83 mL/min (50-200); Estimated Glomerular Filt Rate 51 ml/min (>60); GFR (African American) 62 ML/MIN (>60); Glucose 303 mg/dl (74-100)
[2024-10-12] MEDS: VERAPAMIL 2.5MG/ML 2ML VIAL 2.5 MG IV (10:26)
[2024-10-12] MEDS: HEPARIN 1,000 UNITS/ML 10ML VIAL (CATH LAB) 10000 UNIT IV ×2 (10:26→10:42)
[2024-10-12] MEDS: LIDOCAINE 1% 10ML MDV 20 ML IJ (10:27)
[2024-10-12] MEDS: diphenhydrAMINE 50MG/ML VIAL 50 MG IV (10:27)
[2024-10-12] MEDS: HEPARIN 1,000 UNITS/500ML NS (CATH LAB) 3000 UNIT IV (10:27)
[2024-10-12] MEDS: NITROGLYCERIN 800MCG/8ML SYR (CATH LAB) 800 MCG IA (10:27)
[2024-10-12] MEDS: 0.9 % SODIUM CHLORIDE 500 ML 25 ML IV (10:28)
[2024-10-12] MEDS: PRASUGREL 10MG TAB 60 MG PO (10:54)
[2024-10-12] MEDS: IOPAMIDOL-370 (76%);100ML BOTTLE 90 ML IV (12:36)
[2024-10-12 12:38] LABS: CATHL Activated Clotting Time 273 SEC (74-125)
== END 2024-10-12 15:08 | disposition home or self-care (01) ==
PROVIDERS: PCP Internal Medicine Adolescent Medicine; Visit Provider Internal Medicine
DX: I25.110 Atherosclerotic heart disease of native coronary artery with unstable angina pectoris (principal); I77.1 Stricture of artery; I10 Essential (primary) hypertension; I48.0 Paroxysmal atrial fibrillation; E11.9 Type 2 diabetes mellitus without complications; R06.09 Other forms of dyspnea; E78.2 Mixed hyperlipidemia; N28.9 Disorder of kidney and ureter, unspecified; I25.2 Old myocardial infarction; Z95.5 Presence of coronary angioplasty implant and graft; Z79.84 Long term (current) use of oral hypoglycemic drugs; Z79.899 Other long term (current) drug therapy
CPT/HCPCS: 80048; 85025; 85347; 92928; 93458; 99152; C1725; C1769; C1874; C9600; J1200; J1644; Q9967

== ENCOUNTER 2024-10-15 10:02 | Outpatient (CLI) | payer MEDICARE, SELFPAY ==
[2024-10-15 10:55] LABS: Basophils % 0.4 % (0.1-2.0); Eosinophils # 0.4 K/mm3 (0.0-0.4); Eosinophils % 5.2 % (0.1-12.0); Hematocrit 39.7 % (42.0-52.0); Hemoglobin 13.7 g/dL (14.1-18.0); Lymphocytes # 1.3 K/mm3 (0.7-4.5); Lymphocytes % 17.8 % (10-50); Mean Corpuscular HGB Conc 34.5 g/dL (31.8-35.4); Mean Corpuscular Hemoglobin 28.8 pg (27.0-31.2); Mean Corpuscular Volume 83.6 fl (80-94); Mean Platelet Volume 9.8 fl (7.4-10.4); Monocytes # 0.7 K/mm3 (0.1-1.0); Monocytes % 9.2 % (1.7-9.3); Neutrophils % 66.9 % (37.0-80.0); Platelet Count 204 K/mm3 (142-424); Red Blood Count 4.75 M/mm3 (4.60-6.20); Red Cell Distribution Width 11.2 % (11.5-17.5); White Blood Count 7.5 K/mm3 (4.8-10.8)
[2024-10-15 11:16] LABS: Chloride 98 mmol/L (98-107); Potassium 5.1 mmoL/L (3.5-5.1); Sodium 136 mmol/L (136-145)
[2024-10-15 11:19] LABS: Blood Urea Nitrogen 22 mg/dl (9-20); Estimated Glomerular Filt Rate 51 ml/min (>60); GFR (African American) 62 ML/MIN (>60)
[2024-10-15 11:20] LABS: Anion Gap 12.1 mEq/L (5-15); Calcium 9.5 mg/dl (8.4-10.2); Carbon Dioxide 31 mmol/L (22.0-30.0); Glucose 278 mg/dl (74-100)
== END 2024-10-15 23:59 | disposition home or self-care (01) ==
LOC: LAB 10:03
PROVIDERS: PCP Internal Medicine Adolescent Medicine; Visit Provider Internal Medicine
DX: Z95.5 Presence of coronary angioplasty implant and graft (principal); I10 Essential (primary) hypertension
CPT/HCPCS: 36415; 80048; 85025

== ENCOUNTER 2024-11-14 07:46 | Outpatient (CLI) | payer MEDICARE, SELFPAY ==
--- NOTE | 2024-11-14 08:00 | CA_ITS ---
FINAL REPORT CLINICAL HISTORY: HTN,HLD,DM COMPARISON: None FINDINGS: Aorta velocity: 96.4 cm/sec Right kidney: 12.3 cm. No evidence of hydronephrosis or mass. Right intrarenal RI: 0.60-0.63 Right renal artery velocity: 219 cm/sec. Right RAR (Renal artery-Aortic Ratio): 2.3 Left Kidney: 11.5 cm. No evidence of hydronephrosis. Hypoechoic cyst lower pole of the left kidney. Left intrarenal RI: 0.57-0.67 Left renal artery velocity: 200 cm/sec. Left RAR (Renal Artery-Aortic Ratio): 2.1 IMPRESSION: Less than 60% stenosis of the renal arteries bilaterally. CT angiogram or postcontrast MR angiogram would be more sensitive for evaluation of possible renal artery stenosis. Reviewed, Interpreted and Dictated by Radha Singh MD Transcribed by Karey Washington Authenticated and [facility]
--- NOTE | 2024-11-14 09:00 | US_ITS ---
FINAL REPORT TECHNIQUE: Ultrasound images of the kidneys and bladder were obtained. CLINICAL HISTORY: I10 - Essential (primary) hypertension COMPARISON: None FINDINGS: The right kidney measures 11 cm in length. It is normal in echogenicity. There is no hydronephrosis. The left kidney measures 11.2 cm in length. There is a 3.2 x 3.2 cm hypoechoic cyst in the lower pole of the left kidney. There is no hydronephrosis. IMPRESSION: Hypoechoic cyst lower pole of the left kidney. Otherwise, unremarkable ultrasound of the kidneys. Reviewed, Interpreted and Dictated by Radha Singh MD Transcribed by Karey Washington Authenticated and [facility]
== END 2024-11-14 23:59 | disposition home or self-care (01) ==
LOC: RT 07:46
PROVIDERS: PCP Internal Medicine Adolescent Medicine; Visit Provider Physician Assistant
DX: N28.1 Cyst of kidney, acquired (principal); I10 Essential (primary) hypertension; E78.2 Mixed hyperlipidemia; I48.0 Paroxysmal atrial fibrillation; I25.119 Atherosclerotic heart disease of native coronary artery with unspecified angina pectoris; R06.09 Other forms of dyspnea; E11.9 Type 2 diabetes mellitus without complications; Z79.84 Long term (current) use of oral hypoglycemic drugs
CPT/HCPCS: 76770; 93976

== ENCOUNTER 2025-05-18 15:03 | Emergency (ER) | payer MEDICARE, SELFPAY ==
[2025-05-18] VITALS (10 sets, daily range): BP systolic 107–149; BP diastolic 67–84; PULSE 59–80; RESP 16; TEMP 36.6–37; O2SAT 91–99; BMI 31.8
--- NOTE | 2025-05-18 15:04 | ECG_ITS ---
APPROVED REPORT Exam: Resting ECG HR:88 bpm ECG Measurements Heart Rate 88 AXES NH 245 P -1 QRSd 88 QRS 61 QT 346 T 56 QTc 392 Conclusion SINUS RHYTHM WITH FIRST DEGREE AV BLOCK INDETERMINATE AXIS PATTERN CONSISTENT WITH PULMONARY DISEASE ABNORMAL ECG UNCONFIRMED REPORT Electronically signed by : NATALIE PIERRE, 05/20/2025 23:06:20
--- OUTSIDE RECORDS SUMMARY | 2025-05-18 15:25 | XMS_ITS | Encounter Summary ---
Author Organization Healthcare Address [address] [place] [address] Care Team Providers Care [employer] Name Role Phone Luis Prado MD Primary Care Provider [phone] Encounter Details Date Type Department Care Team (Latest Contact Info) Description 04/26/2025 Travel Social History Tobacco Use Types Packs/Day Years Used Date Smoking Tobacco: Never Alcohol Use Standard Drinks/Week Comments Not Asked 0 (1 standard drink = 0.6 oz pur e alcohol) special occasions only Sex and Gender Information Value Date Recorded Sex Assigned at Not on file Legal Sex Male 6:48 PM EDT Gender Identity Not on file Sexual Orientation Not on file documented as of this encounter Plan of Treatment Not on file documented as of this encounter Visit Diagnoses Not on filedocumented in this encounter Care Teams [employer] Relationship Specialty Start Date End Date Luis Prado MD [facility] [place] [address] PCP - General 01/02/21 documented as of this encounter
--- OUTSIDE RECORDS SUMMARY | 2025-05-18 15:25 | XMS_ITS | Encounter Summary ---
Author Organization Healthcare Address [address] [place] [address] Care Team Providers Care Podiatric Surgeon Name Role Phone Luis Prado MD Primary Care Provider [phone] Encounter Details Date Type Department Care Team (Late st Contact Info) Description 03/29/2025 Orders Only [facility] [address] [place] [phone] Yaquelin Villagomez Stage 3 chronic kidney disease, unspecified whether stage 3a or 3b CKD (CMS/HCC) (Primary Dx); Vitamin D insufficiency Social History Tobacco Use Types Packs/Day Years Used Date Smoking Tobacco: Never Assessed Sex and Gender Information Value Date Recorded Sex Assigned at Not on file Legal Sex Male 6:48 PM EDT Gender Identity Not on file Sexual Orientation Not on file documented as of this encounter Plan of Treatment Scheduled Orders Name Type Priority Associated Diagnoses Orde r Schedule Renal Function Panel, Plasma Lab Routine Stage 3 chronic kidney disease, unspecified whether stage 3a or 3b CKD (CMS/HCC) Expected: 03/29/2025 (Approximate), Expires: 09/29/2026 CBC and Differential Lab Routine Stage 3 chronic kidney disease, unspecified whether stage 3a or 3b CKD (CMS/HCC) Expected: 03/29/2025 (Approximate), Expires: 09/29/2026 Creatinine, Random, Urine Lab Routine Stage 3 chronic kidney disease, unspecified whether stage 3a or 3b CKD (CMS/HCC) Expected: 03/29/2025 (Approximate), Expires: 09/29/2026 Protein, Random, Urine with Creatinine Lab Routine Stage 3 chronic kidney disease, unspecified whether stage 3a or 3b CKD (CMS/HCC) Expected: 03/29/2025 (Approximate), Expires: 09/29/2026 Urinalysis with reflex microscopic (Culture NOT Included) Lab Routine Stage 3 chronic kidney disease, unspecified whether stage 3a or 3b CKD ([facility]) Expected: 03/29/2025 (Approximate), Expires: 09/29/2026 PTH Intact Total Lab Routine Stage 3 chronic kidney disease, unspecified whether stage 3a or 3b CKD ([facility]) Vitamin D insufficiency Expected: 03/29/2025 (Approximate), Expires: 09/29/2026 Vitamin D 25 Hydroxy Lab Routine Stage 3 chronic kidney disease, unspecified whether stage 3a or 3b CKD ([facility]) Vitamin D insufficiency Expected: 03/29/2025 (Approximate), Expires: 09/29/2026 documented as of this encounter Visit Diagnoses Diagnosis Stage 3 chronic kidney disease, unspecified whether stage 3a or 3b CKD ([facility])- Primary Vitamin D insufficiency documented in this encounter Care Teams Podiatric Surgeon Relationship Specialty Start Date End Date Luis Prado MD [address] [place] [address] PCP - General 01/02/21 documented as of this encounter
--- OUTSIDE RECORDS SUMMARY | 2025-05-18 15:25 | XMS_ITS | Clinical Summary ---
Author Organization Healthcare Address [address] [place] [address] Care Team Providers Care American Board Certified Orthotist Name Role Phone Luis Prado MD Primary Care Provider [phone] Allergies No known active allergies Medications aspirin 81 MG EC tablet Take 1 tablet by mouth daily. Active carvedilol (Coreg) 3.125 MG tablet Take 1 tablet by mouth 2 times a day with meals. Active dapagliflozin (Farxiga) 10 MG tablet Take 1 tablet by mouth daily. Active escitalopram (Lexapro) 10 MG tablet Take 1 tablet by mouth daily. Active glimepiride (Amaryl) 4 MG tablet Take 1 tablet by mouth daily before breakfast. Active hydroCHLOROthia zide (HYDRODiuril) 25 MG tablet Take 1 tablet by mouth daily. Active losartan (Cozaar) 100 MG tablet Take 1 tablet by mouth daily. Active nitroglycerin (Nitrostat) 0.[address] 1 tablet under the tongue every 5 minutes as needed for chest pain. Active prasugrel (Effient) 10 MG tablet Take 1 tablet by mouth daily. Active rosuvastatin (Crestor) 40 MG tablet Take 1 tablet by mouth daily. Active SITagliptin (Januvia) 100 MG tablet Take 1 tablet by mouth daily. Active traZODone (Desyrel) 150 MG tablet Take 1 tablet by mouth nightly. Active lisinopril 5 MG tablet Take 1 tablet by mouth daily. 04/23/20 25 Discontinu ed(Entered in Error) Active Problems Problem Noted Date Diagnosed Date Hypertension 05/26/2016 Overview (04/23/2025): 1. uncontrolled, presumed essential. a. Echocardiogram, November 2009 with impaired diastolic relaxation, normal systolic wall motion and thickening. Normal atrial dimension. No LVH. Dyslipidemia 05/26/2016 Encounters Date Type Department Care Team Description 04/26/2025 Travel 03/29/2025 Orders Only [facility] [address] [place] [phone] [place] Yaquelin Mahajan Stage 3 chronic kidney disease, unspecified whether stage 3a or 3b CKD (CMS/HCC) (Primary Dx); Vitamin D insufficiency from Last 3 Months Social History Tobacco Use Types Packs/Day Years Used Date Smoking Tobacco: Never Tobacco Cessation:Counseling Given: Not Answered Alcohol Use Standard Drinks/Week Comments Not Asked 0 (1 standard drink = 0.6 oz pur e alcohol) special occasions only Sex and Gender Information Value Date Recorded Sex Assigned at Not on file Legal Sex Male 6:48 PM EDT Gender Identity Not on file Sexual Orientation Not on file Last Filed Vital Signs Vital Sign Reading Time Taken Comments Blood Pressure 138/82 02/04/2023 10:45 AM EDT Pulse 54 02/04/2023 10:45 AM EDT Temperature - - Respiratory Rate - - Oxygen Saturation - - Inhaled Oxygen Concentration - - Weight 108 kg (239 lb) 02/04/2023 10:45 AM EDT Height 182.9 cm (6') 02/04/2023 10:45 AM EDT Body Mass Index 32.41 02/04/2023 10:45 AM EDT Plan of Treatment Health Maintenance Due Date Last Done Comments [facility]-Depression Screening 1959 [facility]-Infant/Child/Adol SDOH Screenings 1959 [facility]-Obesity Intervention 1965 [facility]- SDOH Screenings 1977 [facility]-Adult SDOH Screenings 1977 [facility]-DTaP,Tdap,and Td Vaccine s (1 - Tdap) 1978 CT Colonography 2004 Colonoscopy 2004 FIT-DNA 2004 FIT 2004 FOBT 2004 Sigmoidoscopy 2004 [facility]-Colorectal Cancer Screening 2004 [facility]-Pneumococcal Vaccine: 50 + Years (1 of 1 - PCV) 2009 [facility]-Zoster Vaccines (1 of 2) 2009 [id number] Vaccine (2 - 20 25-26 season) 2025 03/05/2021 [facility]-Influenza Vaccine (#1) 2025 [facility]-RSV Vaccine: 60+ Years o r (1 - 1-dose 75+ series) 2034 HPV Vaccines Aged Out No longer eligi ble based on patient's age to complete this topic [facility]-HIB Vaccines Aged Out No longer e ligible based on patient's age to complete this topic [facility]-Hepatitis A Vaccines Aged Out No longer eligible based on patient's age to complete this topic [facility]-IPV Vaccines Aged Out No longer e ligible based on patient's age to complete this topic [facility]-Rotavirus Vaccines Aged Out No lo nger eligible based on patient's age to complete this topic Insurance MEDICARE Care Teams American Board Certified Orthotist Relationship Specialty Start Date End Date Luis Prado MD [address] [place] [id number] PCP - General 01/02/21
[2025-05-18 15:31] LABS: Hematocrit 44.3 % (42.0-52.0); Hemoglobin 15.3 g/dL (14.1-18.0); Immature Granulocytes % 0.4 %; Mean Corpuscular HGB Conc 34.5 g/dL (31.8-35.4); Mean Corpuscular Hemoglobin 29.0 pg (27.0-31.2); Mean Corpuscular Volume 83.9 fl (80-94); Nucleated Red Blood Cells % 0 %; Platelet Count 379 K/mm3 (142-424); Red Blood Count 5.28 M/mm3 (4.60-6.20); Red Cell Distribution Width-SD 34.5 fL; White Blood Count 7.5 K/mm3 (4.8-10.8)
[2025-05-18] MEDS: ONDANSETRON 4MG/2ML VIAL 4 MG IV (15:32)
[2025-05-18] MEDS: DEXAMETHASONE 4MG/ML 1ML VIAL 10 MG IV (15:32)
[2025-05-18] MEDS: ASPIRIN 325MG TABLET 325 MG PO (15:33)
[2025-05-18] MEDS: 0.9 % SODIUM CHLORIDE 1000ML 1,000 ML 999 ML IV (15:33)
[2025-05-18 15:36] LABS: Alanine Aminotransferase 33 U/L (12-78); Albumin Level 4.4 g/dl (3.5-5.0); Albumin/Globulin Ratio 1.8 (1.1-1.8); Alkaline Phosphatase 66 U/L (38-126); Anion Gap 12.3 mEq/L (5-15); Aspartate Amino Transferase 32 U/L (17-59); Bilirubin,Total 0.6 mg/dl (0.2-1.3); Blood Urea Nitrogen 20 mg/dl (9-20); Calcium 9.6 mg/dl (8.4-10.2); Carbon Dioxide 29 mmol/L (22.0-30.0); Chloride 99 mmol/L (98-107); Creatinine Clearance Estimated 78 mL/min (50-200); Creatinine,Serum 1.40 mg/dl (0.66-1.25); Estimated Glomerular Filt Rate 51 ml/min (>60); GFR (African American) 61 ML/MIN (>60); Globulin 2.5 g/dL (1.3-3.2); Glucose 263 mg/dl (74-100); Magnesium 1.8 mg/dl (1.6-2.3); Potassium 4.3 mmoL/L (3.5-5.1); Sodium 136 mmol/L (136-145); Total Protein,Serum 6.9 g/dl (6.3-8.2)
--- NOTE | 2025-05-18 15:50 | XR_ITS ---
PROCEDURE INFORMATION: Exam: XR Chest Exam date and time: 05/18/2025 4:20 PM Age: 65 years old Clinical indication: Other: Chest pain TECHNIQUE: Imaging protocol: Radiologic exam of the chest. Views: 1 view. COMPARISON: CT CHEST WO/W CON 09/25/2024 9:34 AM FINDINGS: Lungs: Unremarkable. No consolidation. Pleural spaces: Unremarkable. No pleural effusion. No pneumothorax. Heart/Mediastinum: Unremarkable. No cardiomegaly. Bones/joints: Unremarkable. IMPRESSION: No acute findings.
[2025-05-18 16:06] LABS: Troponin I < 0.01 ng/ml (0.00-0.034)
[2025-05-18] MEDS: FAMOTIDINE 20MG/2ML VIAL 20 MG IV (16:23)
--- NOTE | 2025-05-18 16:42 | PC.NURSE ---
pt reports much improvement after medication. currently resting in bed
--- NOTE | 2025-05-18 18:22 | HMH.EDGENADL ---
Discharge Plan Disposition Patient Disposition: Home, Self-Care Condition: Good Prescriptions Prescriptions: No Action aspirin [Lo-Dose Aspirin] 81 mg tablet,delayed release (DR/EC) 81 mg PO DAILY glimepiride 4 mg tablet 4 mg PO DAILY rosuvastatin 40 mg tablet 40 mg PO DAILY nitroglycerin 0.4 mg tablet, sublingual 0.4 mg sublingual Q5M PRN (Reason: chest pain) Qty: 20 0RF Rx Instructions: do not exceed 3 doses per episode Januvia 100 mg tablet 100 mg PO DAILY escitalopram oxalate 10 mg tablet 10 mg PO DAILY hydrochlorothiazide 25 mg tablet 25 mg PO DAILY Qty: 90 1RF valsartan 160 mg tablet 160 mg PO BID Qty: 60 2RF amlodipine 5 mg tablet See Rx Instructions .ROUTE .COMPLEX Qty: 90 1RF Dose Instruction: TAKE 1 TABLET BY MOUTH DAILY Rx Instructions: TAKE 1 TABLET BY MOUTH DAILY prasugrel HCl [Effient] 10 mg tablet 10 mg PO DAILY Qty: 30 6RF carvedilol 12.5 mg tablet 12.5 mg PO BID Qty: 60 5RF Rx Instructions: must administer with a meal/food trazodone 150 MG tablet 150 mg PO HS Referrals Follow up/Referrals: Manuel Lawler MD [Primary Care Provider, Internal Medicine] - See instructions Activity Restrictions/Add. Instructions Additional Instructions/Restrictions: You may have had an allergic reaction however your blood work here looks unremarkable. Return to the emergency department if you have any acute worsening symptoms. Otherwise stay well-hydrated. Clinical Impressions Clinical Impression: Allergic reaction Print Language Print Language: Serbian Discharge ED Provider: Alexa Ortiz Adult HPI General Chief complaint: Allergic Reaction Stated complaint: Chest Pain Time Seen by Provider: 05/18/25 15:07 Mode of Arrival: Ambulatory Source of Information: Patient Description of Symptoms (Recalled from ER Triage Doc. by RN): pt presents to Ed with c/o possible allergic reaction. pt states that he went to eat lebanese and ate shrimp. pt states that he has eaten shrimp prior to this and did not have any problems. pt reports around 0 he began to have shortness of air and itching. History of Present Illness HPI narrative: Patient is an otherwise healthy 65-year-old gentleman who presents to the emergency department with acute onset of chest pain, shortness of breath, rash and itching. Patient states that while in the emergency department he became diaphoretic. Patient denies any headache or vision changes. Patient reports some nausea but no vomiting. Patient denies any diarrhea. Patient states that he ate some shrimp and Dutch food this morning but he did not eat anything that was abnormal for him. Patient denies any allergies. Patient denies any other issues at this time. Patient does not take any daily medications. Related Data Home Medications ?Medication ?Instructions ?Recorded ?Confirmed aspirin 81 mg tablet,delayed 81 mg PO DAILY heart health 08/27/19 01/15/25 release (Lo-Dose Aspirin) trazodone 150 mg tablet 150 mg PO HS Sleep 11/12/20 01/15/25 glimepiride 4 mg tablet 4 mg PO DAILY 07/02/24 01/15/25 rosuvastatin 40 mg tablet 40 mg PO DAILY 07/02/24 01/15/25 escitalopram oxalate 10 mg tablet 10 mg PO DAILY 09/19/24 01/15/25 sitagliptin phosphate 100 mg 100 mg PO DAILY 12/04/24 01/15/25 tablet (Januvia) Previous Rx's ?Medication ?Instructions ?Recorded hydrochlorothiazide 25 mg tablet 25 mg PO DAILY High blood pressure 09/24/24 #90 tabs nitroglycerin 0.4 mg sublingual 0.4 mg sublingual Q5M PRN chest 10/08/24 tablet pain #20 tabs valsartan 160 mg tablet 160 mg PO BID #60 tabs 03/05/25 amlodipine 5 mg tablet See Rx Instructions .Route 03/26/25 .COMPLEX #90 tabs prasugrel HCl 10 mg tablet 10 mg PO DAILY #30 tabs 04/30/25 (Effient) carvedilol 12.5 mg tablet 12.5 mg PO BID #60 tabs 05/01/25 Allergies Allergy/AdvReac Type Severity Reaction Status Date / Time No Known Allergies Allergy Verified 01/15/25 10:18 [facility] Disclaimer: The information contained in this section may have been updated after the patient was seen, as this information can be updated by other users. Medical History Angina pectoris Debris in left ear canal Debris was cleared today, no sign of infection Otitis media of left ear Resolved Hearing Loss Otitis externa Hearing difficulty of left ear Tinnitus, left ear Otalgia, left ear Abnormal electrocardiogram [ECG] [EKG] Non-STEMI (non-ST elevated myocardial infarction) Paroxysmal atrial fibrillation History of left heart catheterization (LHC) Insomnia disorder Diabetes mellitus, type 2 Hyperlipidemia Hypertension Gout Diabetes mellitus Surgical History H/O heart artery stent History of cardiac cath History of lung biopsy History of cardiac radiofrequency ablation (RFA) x 2 Family History Other Diabetes Family history of cancer Family history of coronary artery disease Family history of myocardial infarction Social History Smoking Status: Never smoker alcohol intake: current alcohol intake frequency: holidays/special occasions only substance use type: denies use current occupational status: employed Travel in the last 8 weeks?: None household members: spouse housing: house marital status: number of children: 3 caffeine: No jina/adventism: Caodaism special jina needs: No do you feel safe at home: Yes victim of physical abuse: No victim of emotional abuse: No victim of sexual abuse: No would you like helpful sources: No Have you lived/traveled outside US in past 30 days?: No Contact w/someone who lives/traveled outside US past 30 days?: No Exposure to someone with infectious disease in past 14 days?: No Do you have a fever (greater than 100.4 F or 38 C)?: No Have you tested positive for COVID-19?: No Exposed to someone with COVID-19 in past 14 days?: No Do you have a sore throat?: No Do you have a cough?: No Do you have any weakness?: No Do you have any diarrhea?: No Are you experiencing any unusual bleeding?: No Do you have any muscle aches/pain?: No Do you have any abdominal pain?: No Are you experiencing loss of taste or smell?: No Other Medical History Have you received the Flu Vaccine for this season: No Have you received the Pneumonia Vaccine: No ROS Obtained: Yes All systems reviewed & no additional complaints except as documented and Yes Systems reviewed as appropriate & no additional complaints except as documented Physical Exam General General appearance: alert, in no apparent distress and other (diaphoretic) Head Head exam: atraumatic, normocephalic and normal inspection Eye Eye exam: Present normal appearance, PERRL and EOMI; Absent scleral icterus ENT ENT exam: Present normal exam and normal external ear exam Neck Neck exam: Present normal inspection and full ROM Chest Chest inspection: Present normal inspection and symmetric chest wall rise Respiratory Respiratory exam: Present normal lung sounds bilaterally; Absent respiratory distress or wheezes Cardiovascular Cardiovascular exam: Present regular rate, normal rhythm and normal heart sounds Abdominal Exam Abdominal exam: Present soft and distention; Absent tenderness, guarding or rebound Extremities Exam Extremities exam: Present normal inspection and full ROM Back Exam Back exam: Present normal inspection and full ROM Neurological Exam Neurological exam: Present alert and oriented X3 Psychiatric Psychiatric exam: Present normal affect and normal mood Skin Skin exam: Present warm and dry Medical Decision Making Medical Records Medical records reviewed: Yes I reviewed the patient's medical records. Screening: Per USPSTF and CDC recommendations, given the prevalence of disease in our region, it is our hospital?s policy to screen for HIV and viral Hepatitis for all patients aged 18 and over and those with ongoing risk factors. Colt Inquiry Pt receiving controlled substance: No Vital Signs: 05/18/25 15:07 05/18/25 15:48 05/18/25 16:01 Temperature 97.9 F Temperature Source Oral Pulse Rate 59 L 65 Pulse Rate [Left Radial] 80 Respiratory Rate 16 Blood Pressure 107/67 L 114/70 Blood Pressure [Right Arm] 124/84 Blood Pressure Mean Blood Pressure Mean [Right Arm] 97 02 Sat by Pulse Oximetry 98 95 95 Oxygen Delivery Method Room Air 05/18/25 16:30 05/18/25 17:00 05/18/25 17:30 Temperature Temperature Source Pulse Rate 64 66 66 Pulse Rate [Left Radial] Respiratory Rate Blood Pressure 129/76 123/75 134/76 Blood Pressure [Right Arm] Blood Pressure Mean 96 Blood Pressure Mean [Right Arm] 02 Sat by Pulse Oximetry 99 97 94 L Oxygen Delivery Method 05/18/25 18:00 05/18/25 18:30 05/18/25 19:22 Temperature Temperature Source Pulse Rate 68 Pulse Rate [Left Radial] Respiratory Rate Blood Pressure 149/74 H 134/79 133/80 Blood Pressure [Right Arm] Blood Pressure Mean 102 95 Blood Pressure Mean [Right Arm] 02 Sat by Pulse Oximetry 98 Oxygen Delivery Method Room Air 05/18/25 20:13 Temperature 98.6 F Temperature Source Pulse Rate 71 Pulse Rate [Left Radial] Respiratory Rate 16 Blood Pressure 124/82 Blood Pressure [Right Arm] Blood Pressure Mean Blood Pressure Mean [Right Arm] 02 Sat by Pulse Oximetry Oxygen Delivery Method Room Air Lab Data Lab results reviewed: Yes I reviewed the patient's lab results. Lab Results 05/18/25 15:10: WBC 7.5, RBC 5.28, Hgb 15.3, Hct 44.3, MCV 83.9, MCH 29.0, MCHC 34.5, RDW 11.3 L, Plt Count 379, MPV 9.2, Neut % (Auto) 69.8, Lymph % (Auto) 23.2, [place] % (Auto) 5.4, Eos % (Auto) 0.9, Baso % (Auto) 0.3, Neut # (Auto) 5.3, Lymph # (Auto) 1.8, [place] # (Auto) 0.4, Eos # (Auto) 0.1, Baso # (Auto) 0.0, Sodium 136, Potassium 4.3, Chloride 99, Carbon Dioxide 29, Anion Gap 12.3, BUN 20, Creatinine 1.40 H, Estimated Creat Clear 78, Estimated GFR 51 L, Est GFR ( Amer) 61, Glucose 263 H, Calcium 9.6, Magnesium 1.8, Total Bilirubin 0.6, AST 32, ALT 33, Alkaline Phosphatase 66, Troponin I < 0.01, Total Protein 6.9, Albumin 4.4, Globulin 2.5, Albumin/Globulin Ratio 1.8 05/18/25 18:36: Troponin I < 0.01 05/18/25 15:10 05/18/25 15:10 Orders (Tests/Meds): ED MEDICATIONS Discontinued Medications Generic Name Dose Route Start Last Admin Trade Name Freq PRN Reason Stop Dose Admin Aspirin 325 mg 05/18/25 15:20 05/18/25 15:33 Aspirin 325mg Tablet PO 05/18/25 15:21 325 mg ONCE ONE Administration Dexamethasone Sodium Phosphate 10 mg 05/18/25 15:20 05/18/25 15:32 Dexamethasone 4mg/Ml 1ml Vial IV 05/18/25 15:21 10 mg ONCE ONE Administration Diphenhydramine HCl 50 mg 05/18/25 15:20 05/18/25 15:33 Diphenhydramine 50mg/Ml Vial IV 05/18/25 15:21 50 mg ONCE ONE Administration Famotidine 20 mg 05/18/25 15:55 05/18/25 16:23 Famotidine 20mg/2ml Vial IV 05/18/25 15:56 20 mg ONCE ONE Administration Sodium Chloride 1,000 mls @ 999 mls/hr 05/18/25 15:20 05/18/25 17:36 Sod Chlor 0.9% 1000ml Bag IV 05/18/25 16:20 Infused .Q1H1M ONE Infusion Ondansetron HCl 4 mg 05/18/25 15:20 05/18/25 15:32 Ondansetron 4mg/2ml Vial IV 05/18/25 15:21 4 mg ONCE ONE Administration Sodium Chloride 8 ml 05/18/25 15:55 Sodium Chloride 0.9% 10ml Vial IV 06/17/25 15:54 NEEDED PRN dilute pepcid ORDERS Category Date Time Status CXR --portable [XR chest portable] Stat Exams 05/18/25 15:50 Completed CBC w/Auto Diff [Complete Blood Count Auto Diff] Stat Lab 05/18/25 15:10 Completed CMP [Comprehensive Metabolic Panel] Stat Lab 05/18/25 15:10 Completed Magnesium Stat Lab 05/18/25 15:10 Completed Trop I [Troponin I] Stat Lab 05/18/25 15:10 Completed Troponin I Q3H Lab 05/18/25 18:36 Completed Medical Decision Narrative: Patient is an otherwise healthy 65-year-old male who presented to the emergency department with acute onset of chest pain, diaphoresis, itching and rash. On arrival, patient was hemodynamically stable with unremarkable vital signs. Differential includes but not limited to: Allergic reaction, anaphylaxis, electrolyte abnormalities, ACS/CA, arrhythmia, amongst others. Since labs were reviewed and interpreted by myself: CBC showed no leukocytosis, hemoglobin was stable. CMP unremarkable. Initial troponin less than 0.01, second troponin less than 0.01. X-ray was reviewed and interpreted by myself and showed no acute for consolidation, pneumothorax, pleural effusion or other acute cardiopulmonary process. Patient appeared to be having an allergic reaction and therefore patient was treated with dexamethasone, Pepcid, Benadryl and patient was given IV fluids. On repeat evaluation, patient reported significant improvement. No signs of anaphylaxis at this time. Therefore, patient was not given epinephrine. At this time, given patient's unremarkable workup with significant improvement in his symptoms I felt the patient was appropriate and stable for discharge home. Return precautions were discussed. Critical Care Critical Care Time Critical Care Time: No
[2025-05-18 19:15] LABS: Troponin I < 0.01 ng/ml (0.00-0.034)
== END 2025-05-18 20:14 | disposition home or self-care (01) ==
PROVIDERS: Emergency Provider Student in an Organized Health Care Education/Training Program; PCP Internal Medicine Adolescent Medicine
DX: R07.9 Chest pain, unspecified (principal); L29.9 Pruritus, unspecified; R61 Generalized hyperhidrosis; T78.40XA Allergy, unspecified, initial encounter
CPT/HCPCS: 71045; 80053; 83735; 84484; 85025; 93005; 96361; 96374; 96375; 99285; J1100; J1200; J2405; J7030